=== PATIENT | female | born 1960 ===

== ENCOUNTER 2017-12-15 11:48 | Inpatient (IN) | payer MEDICAID ==
[~2017-12-15] VITALS: Ht 144.8 cm; Wt 52.4 kg
[2017-12-15 14:30] VITALS: BP 115/75
[2017-12-15] MEDS ORDERED: NITROGLYCERIN 0.4 MG SL TABS BTL 25'S SL PRN (14:45)
[2017-12-15] MEDS ORDERED: HYDROcodone/APAP 10 MG/325 MG (LORTAB) TAB PO PRN (14:45)
--- NOTE | 2017-12-15 15:39 | Physical Therapy Evaluation ---
PT Evaluation-General Medical Diagnosis Admission Date Dec 15, 2017 at 14:30 Medical Diagnosis: R femoral fracture, cerivcal fracture Onset Date: Dec 09, 2017 Therapy Diagnosis Therapy Diagnosis: Weakness, poor functional mobility and activity tolerance, pain Height/Weight Height (Feet): 4 Height (Inches): 9.00 Weight (Pounds): 111 Weight (Ounces): 8.0 Precautions Precautions/Isolations: Fall Prevention, Standard Precautions Cervical collar on at all times RLE: no hip flexion passed 90 degrees, no moving leg in IR or ER, no bringing leg across body Weight Bear Status Right Lower Extremity: Right Partial Weight Bearing (25% WB) Left Lower Extremity: Left Weight Bearing/Tolerated Referral Physician: Jag Kong MD Reason for Referral: Evaluation/Treatment Medical History Pertinent Medical History: COPD Additional Medical History Depression, malignant neoplasm of lung Surgery: appendectomy, cholecystectomy, hysterectomy tubal ligation Current History Pt presented to ER with R hip pain after falling. Pt had a R femoral fracture. Social History Home: Single Level Current Living Status: Children Entry Into Home: Ramp PT Steps Into Home: 0 PT Steps Inside Home: 0 Pt lives with daughter who is there all the time. Prior/Core FIM Prior Level of Function Functional [place] Measure 0=Not Assessed/NA 4=Minimal Assistance 1=Total Assistance 5=Supervision or Setup 2=Maximal Assistance 6=Modified [place] 3=Moderate Assistance 7=Complete [place] Bed Mobility: 3 Transfers (B,C,W/C) (FIM): 3 Gait: 6 Locomotion: 6 Pt required mod A from daughter for bed mobility and transfers. Pt utilized reverse walker with hand brakes in the home. PT Evaluation-Current Subjective Pt is laying in bed pre eval and c/o pain in LLE at 9/10. Pt agrees to PT. Pain Numeric Pain Scale: 9 Location: Left Location Body Site: Thigh Pt/Family Goals Return home with support Objective Patient Orientation: Person, Place, Situation Attachments: Oxygen (3 L) Cervical collar ROM/Strength ROM Lower Extremities NT Strenght Lower Extremities Grossly 4/5 RLE Neuromuscular (Tone, Coordination, Reflexes) NT Sensory Vision: Functional Hearing: Functional Sensation Right Lower Extremit: Intact Sensation Left Lower Extremity: Intact Transfers Functional [place] Measure 0=Not Assessed/NA 4=Minimal Assistance 1=Total Assistance 5=Supervision or Setup 2=Maximal Assistance 6=Modified [place] 3=Moderate Assistance 7=Complete IndependenceIRFPAI Quality Coding Scale 6 Independent with activity with or without an assistive device 5 Patient requires set up or clean up by helper. Patient completes activity by themselves 4 Supervision or touching assist (CGA). [place] provide cues , steadying assist 3 The helper provides less than half the effort to complete the activity 2 The helper provides more than half the effort to complete the activity 1 Dependent. The helper does all the effort to complete an activity 7 Patient refused to complete or attempt activity 9 The patient did not perform the activity before the current illness or injury 88 Not attempted due to Medical conditions or safety concerns Transfers (B, C, W/C) (FIM): 2 Scootin Rollin Roll Left to Right (QC): 3 Supine to/from Sit: 4 Sit to/from Stand: 2 bed t/f WC(FIM only if WC use): 2 Sit to Lying (QC): 3 Lying to Sitting/Side of Bed(Q: 3 Sit to Stand (QC): 2 Chair/Bwt-sk-Rkonb Xfer(QC): 2 Min A required for bed mobility with manual assistance of the RLE. Max A necessary for sit to stand and bed to chair transfer. Gait Does the Patient Walk?: Yes Mode of Locomotion: Walk Anticipated Mode of Locomotion: Walk Gait (FIM): 1 Distance (FIM): 1=up to 49 ft Walk 10 feet (QC): 88 Walk 50 ft with 2 Turns(QC): 88 Walk 150 ft (QC): 88 Walking 10ft/uneven surface-QC: 88 Distance: 3 feet Gait Level of Assist: 4 Gait Persons Needed: 1 Gait Assistive Device: Parallel Bars Wheelchair Training Does the Pt Use a Wheelchair?: Yes Wheelchair (FIM): 2 Wheelchair Distance (FIM): 5=346-82 ft Distance: 100 feet x2 Wheelchair Level of Assist: 4 Wheel 50 ft with 2 turns (QC): 4 Wheel 150 ft (QC): 88 Type of Wheelchair: Manual Min A needed for steering Stairs 1 Step (curb) (QC): 88 4 Steps (QC): 88 12 Steps (QC): 88 If not tested on admit;explain Pt was able to walk 3 feet. It seemed unsafe to promote stair training at this time. Balance Sitting Static: Normal Sitting Dynamic: Normal Standing Static: Fair Standing Dynamic: Fair Picking up an Object (QC): 88 Treatment Pt performed BLE exercises: ankle pumps 10 x1, hip flexion 10 x1 (up to 90 degrees on the RLE), LAQ 10 x1 Assessment/Needs Pt demonstrates weakness in BLE and poor activity tolerance. Due to pain in the LLE, pt was able to ambulate for 3 feet in the parallel bars. Pt will benefit from PT services to address these impairments. Rehab Potential: Fair PT Short Term Goals Short Term Goals Time Frame: Dec 22, 2017 Transfers (B,C,W/C) (FIM): 4 Gait (FIM): 1 Gait Distance Comment: 30 feet Gait Level of Assist: 4 Gait Assistive Device: FWW Wheelchair (FIM): 5 Wheelchair Distance: 150 feet Wheelchair Level of Assist: 5 PT Chcf Goals Chcf Goals PT Chcf Goals Time Frame: Jan 05, 2018 Transfers (B,C,W/C) (FIM): 5 Sit to Lying (QC): 4 Lying-Sitting on Side/Bed(QC): 4 Sit to Stand (QC): 4 Rollin Roll Left to Right (QC): 4 Chair/Rqc-jr-Fmbya Xfer(QC): 4 Car Transfer (QC): 4 Does the Patient Walk: Yes Gait (FIM): 5 Distance: 200 feet Walk 10 feet (QC): 4 Walk 10ft-Uneven Surface(QC): 4 Walk 50ft with 2 Turns (QC): 4 Walk 150 ft (QC): 4 Gait Level of Assist: 5 Gait Assistive Device: FWW Does the Pt use WC or Scooter?: Yes Wheelchair (FIM): 6 Distance: 300 feet Wheelchair Level of Assist: 6 Wheel 50 feet with 2 turns (QC: 6 Stairs (FIM): 2 # of Steps: 4 1 Step (curb) (QC): 4 4 Steps (QC): 4 Stairs Level Of Assist: 4 PT Plan Problem List Problem List: Activity Tolerance, Functional Strength, Safety, Balance, Gait, Transfer, Bed Mobility Treatment/Plan Treatment Plan: Continue Plan of Care Treatment Plan: Bed Mobility, Concurrent Therapy, Education, Functional Activity Aviva, Functional Strength, Group Therapy, Gait, Safety, Therapeutic Exercise, Transfers Treatment Duration: Jan 05, 2018 Frequency: At least 5 of 7 days/Wk (IRF) Estimated Hrs Per Day: 1.5 hours per day Patient and/or Family Agrees t: Yes Safety Risks/Education Patient Education: Gait Training, Transfer Techniques, Reviewed Precautions, Correct Positioning, W/C Management, Disease Process, Safety Issues Teaching Recipient: Patient Teaching Methods: Demonstration, Discussion Response to Teaching: Reinforcement Needed Discharge Recommendations Plan Pt will perform bed mobility and transfer training, gait and stair training, exercises to improve strength and activity tolerance as well balance training in order to be independent at home. Therapy D/C Recommendations: Home w/ Family Support Equpiment Recommendations-D/C: Front Wheeled Walker Time/GCodes Time In: 1500 Time Out: 1530 Total Billed Treatment Time: 30 Total Billed Treatment 1 visit 20 min EVH 10 min EX TARIQ NICHOLAS PT Dec 15, 2017 15:39
[2017-12-15] MEDS ORDERED: RT-ALBUTEROL SULF 2.5 MG/3 ML PRE-MIX VIAL INH PRN (15:45)
--- NOTE | 2017-12-15 15:50 | Occupational Therapy Eval ---
OT Evaluation-General/PLF Medical Diagnosis Admission Date Dec 15, 2017 at 14:30 Medical Diagnosis: Right hip fx/FABIAN Onset Date: Oct 18, 2017 Therapy Diagnosis Therapy Diagnosis: Weakness, Decreased ADL skills Height/Weight Height (Feet): 4 Height (Inches): 9.00 Weight (Pounds): 111 Weight (Ounces): 8.0 Weight Bear Status Weight Bearing Restriction: Touch Toe Bearing 25% weightbearing Right LE. Pt. wearing [place] J collar and has hip precautions. Referral Physician: Dr. Kong Referral Reason: Activity Tolerance, Self Care, Evaluation/Treatment, Strengthening/ROM Medical History Pertinent Medical History: COPD, HTN Additional Medical History Pneumonia Current History Pt. states that she went to in October. It was determined that she had two fx vertebrae, mass in her lungs and pneumonia. Pt. was given a [place] J collar and treated for pneumonia. Began radiation for the neck according to her. Pt. went home but began to have pain when ambulating. Went back to physician last where it was found that she had a lesion in her right inferior pubic ramus. Pt. underwent a Right FABIAN. Reviewed History: Yes Social History Home: Single Level Current Living Status: Children Entry Into Home: Stairs With Railing Steps Into Home: 3 Pt. states that she will be moving in with her daughter who has 8 children in the home. States that her daughter is supposed to be building a ramp while she is in rehab. ADL-Prior Level of Function ADL PLOF Comments Pt. was independent prior to her cancer diagnosis with ADLs. DME/Equipment: Bath Chair, Shower DME/Equipment Comments Pt. has a walker. 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 Drive Self: No OT Current Status Subjective Pt. is reporting pain 8/10 left hip. Nursing notified. Appearance Pt. in bed after arriving from [facility] via wheelchair van. Mental Status/Objective Patient Orientation: Person, Place Current Hand Dominance: Right Upper Extremity ROM Pt. demonstrates full ROM in bilateral UE. ADL-Treatment Functional [place] Measure 0=Not Assessed/NA 4=Minimal Assistance 1=Total Assistance 5=Supervision or Setup 2=Maximal Assistance 6=Modified [place] 3=Moderate Assistance 7=Complete IndependenceIRFPAI Quality Coding Scale 6 Independent with activity with or without an assistive device 5 Patient requires set up or clean up by helper. Patient completes activity by themselves 4 Supervision or touching assist (CGA). [place] provide cues , steadying assist 3 The helper provides less than half the effort to complete the activity 2 The helper provides more than half the effort to complete the activity 1 Dependent. The helper does all the effort to complete an activity 7 Patient refused to complete or attempt activity 9 The patient did not perform the activity before the current illness or injury 88 Not attempted due to Medical conditions or safety concerns Other Treatments OT evaluation initiated. Pt. is able to state most facts regarding history of cancer diagnosis. However, does have some difficulty placing certain events. Pt. states that she would like to get stronger. Pt. is able to answer all questions and participate in UE ROM testing. Did not test fully for muscle strength at this time, as pt. in pain and due to nature of fx. Education OT Patient Education: Correct positioning, Progress toward Goal/Update tx plan , Purpose of tx/functional activities, Reviewed precautions, Rehab process Teaching Recipient: Patient Teaching Methods: Discussion OT Short Term Goals Short Term Goals Time Frame: Dec 29, 2017 Eating(FIM): 5 Grooming(FIM): 5 Bathing(FIM): 4 Upper Body Dressing(FIM): 5 Lower Body Dressing(FIM): 4 Toileting(FIM): 4 Transfers (B,C,W/C) (FIM): 5 Toilet/Commode Transfer(FIM): 5 Shower Transfer(FIM): 4 Additional Short Term Goals: 1-Demonstrate ADL Tasks, 2-Verbalize Understanding , 3-ImproveStrength/Aviva 1=Demonstrate adherence to instructed precautions during ADL tasks. 2=Patient will verbalize/demonstrate understanding of assistive devices/ modifications for ADL. 3=Patient will improve strength/tolerance for activity to enable patient to perform ADL's. OT Assisted Goals Assisted Goals Time Frame: Jan 05, 2018 Eating (FIM): 6 Eating (QC): 6 Groomin Oral Hygiene (QC): 5 Bathing(FIM): 5 Shower/Bathe Self (QC): 5 Upper Body Dressing(FIM): 5 Upper Body Dressing (QC): 5 Lower Body Dressing(FIM): 5 Lower Body Dressing (QC): 5 On/Off Footwear (QC): 5 Toileting(FIM): 6 Toileting Hygiene (QC): 6 Transfers (B,C,W/C) (FIM): 6 Toilet/Commode Transfer(FIM): 6 Toilet/Commode Transfer (QC): 6 Shower Transfer(FIM): 5 Additional Goals: 1-Demonstrate ADL Tasks, 2-Verbalize Understanding, 3- ImproveStrength/Aviva 1=Demonstrate adherence to instructed precautions during ADL tasks. 2=Patient will verbalize/demonstrate understanding of assistive devices/ modifications for ADL. 3=Patient will improve strength/tolerance for activity to enable patient to perform ADL's. OT Education/Plan Problem List/Assessment Assessment: Decreased Activ Tolerance, Dependent Transfers, Impaired Funct Balance, Impaired I ADL's, Impaired Self-Care Skills Discharge Recommendations Plan/Recommendations: Continue POC Therapy D/C Recommendations: Home w/ Family Support, Occupational Therapy Home Care Equpiment Recommendations-D/C: Hip Kit Barriers to Progress Fatigue Target Placement Home with daughter support. Treatment Plan/Plan of Care Treatment,Training & Education: Yes Patient would benefit from OT for education, treatment and training to promote independence in ADL's, mobility, safety and/or upper extremity function for ADL' s. Plan of Care: ADL Retraining, Functional Mobility, UE Funct Exercise/Act Treatment Duration: Jan 05, 2018 Frequency: At least 5 of 7 days/Wk (IRF) Estimated Hrs Per Day: 1.5 hours per day Agreement: Yes Rehab Potential: Guarded Time/GCodes Start Time: 14:30 Stop Time: 15:00 Total Time Billed (hr/min): 30 Billed Treatment Time 1, DIONISIO LIMON OT Dec 15, 2017 15:50
--- NOTE | 2017-12-15 15:57 | ST Cognitive Linguistic Eval ---
Speech Evaluation-General Medical Diagnosis Pathological Right Hip Fx Therapy Diagnosis Therapy Diagnosis: Cognitive Linguistic Skills WNL Referral Referring Physician: Dr. Jag Kong Reason for Referral: Evaluation/Treatment Cognitive Evaluation Speech PLF-Current Status Prior Level of Function The patient denied prior challenges with speech, language, or cognition. Subjective The patient was seated upright in recliner upon entrance. The patient was agreeable to participation in the cognitive evaluation, however, stated she was in pain. The pain did not rate the pain or describe the pain when requested. The patient RN was notified who stated she would be administering pain medication to the patient. The patient was satisfied with this resolution. Language Eval: Auditory Comprehends Simple Yes/No Ques: Functional Indent/Objects Multiple [place]: Functional Ident/Pics in Multiple [place]: Functional Follows 1-Step Commands: Functional Follows Complex Directions: Functional Follows General Conversations: Functional Language Eval: Verbal Language Completes Spontaneous Greeting: Functional Produces Auto, Serial Info: Functional Imitates Simple Words/Phrases: Functional Word Finding: Functional Requests Basic Needs: Functional States Basic Personal Info: Functional Expresses Complex Ideas: Functional Cognitive Patient Orientation The patient was independently oriented to self, location, month, day of week, and year. Objective Cognitive Domain Attention: WNL Memory: WNL Problem Solving: Functional Objective Impression The patient demonstrated cognitive linguistic skills WNL and appropriate for completion of ADL's. Communication/Social Cognition Comprehension: 5 Expression: 6 Social Interaction: 6 Problem Solvin Memory: 6 Speech Patient Assess Expression of Ideas/Wants: Expression (4) Understanding [place] Content: Usually Understands (3) Brief Interview-Mental Status: Yes Repetition of Three Words: Three (3) Temporal Orientation: Year: Correct (3) Temporal Orientation: Month: Accurate within 5 days(2) Temporal Orientation: Day: Correct (1) Recall : Wear to say "Sock": Yes, no cue required (2) Recall : Color: Yes, no cue required (2) Recall : Bed: Yes, no cue required (2) Speech-Plan Treatment Plan Speech Therapy Treatment Plan: Discontinue ST Evaluation, only. Frequency: Modified Program (IRF) Estimated Hrs Per Day: Other Rehab Potential: Guarded Safety Risks/Education Teaching Recipient: Patient Teaching Methods: Discussion Response to Teaching: Verbalize Understanding Education Topics Provided: Results, Recommendations, Plan of Care Time Speech Therapy Time In: 15:35 Speech Therapy Time Out: 15:50 Total Billed Time: 15 Billed Treatment Time 1, DORISNDMINGO CHUA Dec 15, 2017 15:56
[2017-12-15] MEDS: oxyCODONE/APAP 5/325MG (PERCOCET 5) TABLET PO PRN ×2 (16:06→22:09)
--- NOTE | 2017-12-15 16:32 | Occupational Ther Daily Note ---
OT Current Status-Daily Note Subjective Pt seen in room, up in w/c, agreeable to OT but reported very tired. Pt needed to toilet. No pain rating Mental Status/Objective Functional [place] Measure 0=Not Assessed/NA 4=Minimal Assistance 1=Total Assistance 5=Supervision or Setup 2=Maximal Assistance 6=Modified [place] 3=Moderate Assistance 7=Complete [place] ADL-Treatment Pt needed mod assist sit to stand from w/c and from BSC. She has difficulty putting weight on R leg and also reported discomfort in L leg . Once she is up and holding on to walker, she needed just CGA for clothing management and hygiene. She did SPT to her L side from w/c to BSC and from BSC to EOB, with min /CGA, FWW. She also needed help getting both legs into bed and a little help scooting bottom over. pt was left up in bed, 4 rails up, O2 in place, all needs met. Functional [place] Measure 0=Not Assessed/NA 4=Minimal Assistance 1=Total Assistance 5=Supervision or Setup 2=Maximal Assistance 6=Modified [place] 3=Moderate Assistance 7=Complete IndependenceIRFPAI Quality Coding Scale 6 Independent with activity with or without an assistive device 5 Patient requires set up or clean up by helper. Patient completes activity by themselves 4 Supervision or touching assist (CGA). [place] provide cues , steadying assist 3 The helper provides less than half the effort to complete the activity 2 The helper provides more than half the effort to complete the activity 1 Dependent. The helper does all the effort to complete an activity 7 Patient refused to complete or attempt activity 9 The patient did not perform the activity before the current illness or injury 88 Not attempted due to Medical conditions or safety concerns Toileting (FIM): 1 (Help with clothing management and hygiene) Toileting Hygiene (QC): 1 Transfers (B, C, W/C) (FIM): 3 Toilet/Commode Transfer (FIM): 3 Toilet Transfer (QC): 3 Education OT Patient Education: Modified ADL techniques, Purpose of tx/functional activities, Transfer techniques Teaching Recipient: Patient Teaching Methods: Discussion Response to Teaching: Return Demonstration OT Short Term Goals Short Term Goals Time Frame: Dec 29, 2017 Eating(FIM): 5 Grooming(FIM): 5 Bathing(FIM): 4 Upper Body Dressing(FIM): 5 Lower Body Dressing(FIM): 4 Toileting(FIM): 4 Transfers (B,C,W/C) (FIM): 4 Toilet/Commode Transfer(FIM): 5 Shower Transfer(FIM): 4 Additional Short Term Goals: 1-Demonstrate ADL Tasks, 2-Verbalize Understanding , 3-ImproveStrength/Aviva 1=Demonstrate adherence to instructed precautions during ADL tasks. 2=Patient will verbalize/demonstrate understanding of assistive devices/ modifications for ADL. 3=Patient will improve strength/tolerance for activity to enable patient to perform ADL's. OT Firmware Architect Goals Senior Living Goals Time Frame: Jan 05, 2018 Eating (FIM): 6 Eating (QC): 6 Groomin Oral Hygiene (QC): 5 Bathing(FIM): 5 Shower/Bathe Self (QC): 5 Upper Body Dressing(FIM): 5 Upper Body Dressing (QC): 5 Lower Body Dressing(FIM): 5 Lower Body Dressing (QC): 5 On/Off Footwear (QC): 5 Toileting(FIM): 6 Toileting Hygiene (QC): 6 Transfers (B,C,W/C) (FIM): 6 Toilet/Commode Transfer(FIM): 6 Toilet/Commode Transfer (QC): 6 Shower Transfer(FIM): 5 Additional Goals: 1-Demonstrate ADL Tasks, 2-Verbalize Understanding, 3- ImproveStrength/Aviva 1=Demonstrate adherence to instructed precautions during ADL tasks. 2=Patient will verbalize/demonstrate understanding of assistive devices/ modifications for ADL. 3=Patient will improve strength/tolerance for activity to enable patient to perform ADL's. OT Education/Plan Discharge Recommendations Plan/Recommendations: Continue POC Treatment Plan/Plan of Care Patient would benefit from OT for education, treatment and training to promote independence in ADL's, mobility, safety and/or upper extremity function for ADL' s. Plan of Care: ADL Retraining, Functional Mobility, UE Funct Exercise/Act Treatment Duration: Jan 05, 2018 Frequency: At least 5 of 7 days/Wk (IRF) Estimated Hrs Per Day: 1.5 hours per day Agreement: Yes Rehab Potential: Fair Time/GCodes Start Time: 15:50 Stop Time: 16:15 Total Time Billed (hr/min): 25 Billed Treatment Time visit, 25 minutes ADL JAKE HARDIN OT Dec 15, 2017 16:31
[2017-12-15] MEDS ORDERED: INFLUENZA TRIvalent 2017-2018 0.5 ML/45 MCG SYR IM ONE (17:45)
[2017-12-15 19:18] VITALS: BP 103/72
--- NOTE | 2017-12-15 20:12 | PM&R Post Admission Assessment ---
Post Admission Physician Asses The preadmission screen agrees with the post admission assessment that the patient is a good candidate for inpatient rehabilitation. The patient will have a comprehensive program of inpatient rehabilitation with a goal of maximizing level of functional independence prior to discharge home with [facility]. The patient will have PT/OT ninety minutes per day, each discipline , five days a week for gait, strengthening, conditioning, balance, ADLs, any patient/family/caregiver training as necessary. Speech therapy to do cognitive assessment and treat as indicated. Rehabilitation nursing to assist with bowel, bladder, skin, wound care, medication administration, pain management. [employer] to assist with discharge planning, community reentry. SCD's for DVT prophylaxis. She appears to be well motivated to participate in three hours of therapy a day. She should be able to tolerate three hours of therapy a day from a medical and standpoint. She should benefit from the three hours of therapy a day. She has a reasonable discharge plan, reasonable discharge rehabilitation goals and a supportive family. She has various comorbidities that need to be closely monitored with medications and treatments adjusted on a daily basis as needed. These include: Metastatic lung Ca to bone COPD o2 dependentModerate Protein calorie malnutrition Ca pain Barriers to discharge for this patient who had been independent prior to this are for her to be modified independent to supervision for ADLs and mobility skills prior to discharge home with [facility], so as to lessen the burden of the caregivers. Risks for this patient include: 1. Fall 2. Fracture 3. DVT 4. Pulmonary embolism 5. Wound infection 6. Skin breakdown 7. Contractures 8. Poorly controlled pain 9. Urinary retention 10. UTI 11. Respiratory infection 12. Aspiration 13, recurrent Pneumonia 14. Resp failure Estimated Length of Stay: 18days Prognosis: Rehab prognosis appears good for goal of discharge home with [facility] modified independent to supervision for ADLs and mobility skills. JOSÉ ANTONIO GENAO MD Dec 15, 2017 20:12
[2017-12-15] MEDS: traZODone 100 MG (DESYREL) TAB PO SCH (20:51)
[2017-12-15] MEDS: meTOprolol TARTRATE 50 MG (LOPRESSOR) TAB PO SCH (20:51)
--- NOTE | 2017-12-15 21:31 | HISTORY AND PHYSICAL ---
DATE OF SERVICE: HISTORY OF PRESENT ILLNESS: The patient is a 57-year-old disabled female with metastatic lung cancer to the bone, who fell at home and sustained a pathologic fracture of the right hip. She was admitted to [facility] and the patient underwent a right hemiarthroplasty with orthopedics. The patient is a 25% weightbearing right lower extremity. She also sustained a C7 fracture, which is managed with a rigid collar. The patient is referred to inpatient rehabilitation unit. The patient also has chronic anemia. She was being followed by radiation oncologist for radiation therapy of bone pain. The patient is now referred to Inpatient Rehabilitation [facility] for ongoing care and therapies. The patient lives near [place], [place]. She was living alone, but plans on going to her daughter's home upon discharge. She was admitted to [facility] on 12/09/2017. Currently, she is min assist for transfers and walking three feet in the parallel bars. She is min assist for steering for wheelchair propulsion. She is right hand dominant. She is on O2 by nasal cannula slowly 3 liters per minute. She is set up for eating and grooming, mod assist for upper body dressing, max assist for lower body dressing, mod assist for toileting and bathing. She has a rigid cervical collar in place. She is utilizing Lortab for pain control. She is toe touch weightbearing right lower extremity. The patient had assistance from her family prior to this and did require some assistance for transfers and supervision for gait with a walker in her home. PAST MEDICAL HISTORY: COPD O2 dependent, pneumonia, nonsmall cell cancer of the right lung, protein-calorie malnutrition, closed fracture of the neck of the right femur as per above, anemia. PAST SURGICAL HISTORY: As per above. ALLERGIES: GABAPENTIN. FAMILY HISTORY: Noncontributory. SOCIAL HISTORY: Essentially as per above. She has a [place] Medicaid card. REVIEW OF SYSTEMS: Ten-point review of systems significant for shortness of breath and hip pain. MEDICATIONS: Amlodipine 10 mg p.o. daily, Ecotrin 81 mg p.o. daily, Imdur 30 mg p.o. daily, Celexa 20 mg p.o. every bedtime, Lopressor 50 mg p.o. b.i.d., trazodone 100 mg p.o. every bedtime, Benadryl 25 mg p.o. every bedtime p.r.n. insomnia, Proventil 2.5 mg q.6 hours p.r.n. shortness of breath, Flexeril 10 mg p.o. t.i.d. p.r.n. muscle spasms, nitroglycerin 0.4 mg sublingual p.r.n. chest pain, tramadol 50 mg p.o. q.8 hours p.r.n. mild pain, oxycodone/APAP 5/325 one tablet p.o. q.6 hours p.r.n. moderate pain. PHYSICAL EXAMINATION: GENERAL: Significant for female appearing her stated age, lying in bed with a rigid cervical collar on. Requesting Benadryl to assist for sleep. VITAL SIGNS: Pulse is 99, respirations 20 and she is afebrile. Blood pressure 115/75, O2 sat 96% on 3 liters of O2 by nasal cannula. HEENT: Vision, speech, hearing is functional. No oral lesion is noted. NECK: Rigid cervical collar. HEART: Regular rhythm. CHEST: Clear anteriorly. ABDOMEN: Soft, nontender, bowel sounds present. EXTREMITIES: She has tenderness over the right hip. No calf tenderness. MUSCULOSKELETAL: She has functional strength and active range of motion both upper extremities, somewhat limited proximally due to her rigid cervical collar. She has a functional active range of motion both lower extremities. NEUROLOGIC: Strength upper limbs as per above. Strength in the lower limbs 4/5. Cognition is grossly intact. Seen by speech therapy already. Sensation is grossly intact to touch. IMPRESSION: 1. Ambulatory dysfunction secondary to fall with pathologic fracture of proximal left femur, status post left hemiarthroplasty. Orthopedics Maryana Tamayo, toe touch weightbearing right lower extremity. 2. Chronic obstructive pulmonary disease, O2 dependent. 3. History of pneumonia. 4. Nonsmall cell cancer of the right lung with mets to bone udergoing RT for pain relief. 5. Protein-calorie malnutrition, moderate. 6. Chronic anemia. 7. C7 fracture, cervical spine, status post fall, managed with a rigid cervical collar. 8. Insomnia -patient requests Benadryl -low dose so ordered. PLAN: The patient will have a comprehensive program of inpatient rehabilitation with goal of maximize level of functional independence prior to discharge home with her daughter with home health care. If insurance will provide, the patient will have PT, OT 90 minutes per day each discipline, 5 days a week for gait, strengthening, conditioning, balance, ADLs, any patient and family caregiver training necessary, any adaptive equipment and training necessary, will most likely need to focus on wheelchair level of function due to her touch weightbearing status right lower extremity and due to limited endurance to COPD with O2 dependence. Speech therapy to do cognitive assessment and treat as indicated. They have seen her and found her to be functional and signed off. Rehabilitation nursing to assist with bowel, bladder, skin, wound care, medication administration, pain management. director of employer services for discharge planning, community reentry. Follow up with her orthopedist in [place] upon discharge from rehabilitation. We will ask Dr. Gatica to follow this patient along for any medical concerns as needed. Routine admission labs. Respiratory therapy to assist with O2 administration, respiratory therapy and respiratory treatment administration and monitoring O2 sats may need to repeat a chest x-ray. ESTIMATED LENGTH OF STAY: 18 days. PROGNOSIS: Rehabilitation prognosis appears good at least at the short-term for goal of discharging home with daughter at maximal level of functional independence taking into consideration of her comorbidities, her metastatic lung cancer to the bone and her C7 fracture managed with a rigid cervical collar and her right femur fracture managed with a hemiarthroplasty and Toe touch weightbearing right lower extremity. Follow up with her radiation oncologist upon discharge from rehabilitation. DIET: Regular. CODE STATUS: The patient has declined hospice or DNR status at referring facility. The patient is a full code. Job ID: [id number] DocumentID: [id number] Dictated Date: 12/15/2017 20:26:52 [employer] Vice President Date: 12/15/2017 21:30:23 Dictated By: JOSÉ ANTONIO GENAO MD [facility]
[2017-12-15] MEDS: diphenhydrAMINE 25 MG TAB (BENADRYL) PO PRN (22:09)
[2017-12-16] MEDS: oxyCODONE/APAP 5/325MG (PERCOCET 5) TABLET PO PRN ×3 (05:29→20:42)
[2017-12-16 06:12] LABS: BASOPHILS % (AUTO) 0 % (0-10); EOSINOPHILS % (AUTO) 1 % (0-10); HEMATOCRIT 27 % (35-52); LYMPHOCYTES # (AUTO) 0.3 X 10^3 (1.0-4.0); LYMPHOCYTES % (AUTO) 4 % (12-44); MEAN CORPUSCULAR HEMOGLOBIN 30 PG (25-34); MEAN CORPUSCULAR HGB CONC 33 G/DL (32-36); MEAN CORPUSCULAR VOLUME 90 FL (80-99); MONOCYTES # (AUTO) 0.7 X 10^3 (0.0-1.0); MONOCYTES % (AUTO) 8 % (0-12); NEUTROPHILS # (AUTO) 6.9 X 10^3 (1.8-7.8); NEUTROPHILS % (AUTO) 87 % (42-75); PLATELET COUNT 461 10^3/uL (130-400); RED BLOOD COUNT 3.04 10^6/uL (4.35-5.85); RED CELL DISTRIBUTION WIDTH 16.9 % (10.0-14.5); WHITE BLOOD COUNT 7.9 10^3/uL (4.3-11.0)
[2017-12-16 06:23] LABS: ANISOCYTOSIS SLIGHT; BAND NEUTROPHILS 1 %; BASOPHILS % (MANUAL) 0 %; EOSINOPHILS % (MANUAL) 1 %; LYMPHOCYTES % (MANUAL) 1 %; MICROCYTOSIS SLIGHT; MONOCYTES % (MANUAL) 7 %; NEUTROPHILS % (MANUAL) 90 %
[2017-12-16 06:24] LABS: POLYCHROMASIA SLIGHT
[2017-12-16 06:51] VITALS: BP 100/64
[2017-12-16 06:54] LABS: ALANINE AMINOTRANSFERASE 13 U/L (0-55); ALBUMIN 2.9 GM/DL (3.2-4.5); ALKALINE PHOSPHATASE 99 U/L (40-136); BILIRUBIN,TOTAL 0.5 MG/DL (0.1-1.0); BUN/CREATININE RATIO 17; CALCIUM 9.4 MG/DL (8.5-10.1); CARBON DIOXIDE 28 MMOL/L (21-32); CHLORIDE 94 MMOL/L (98-107); CREATININE SERUM 0.47 MG/DL (0.60-1.30); GFR ESTIMATED > 60; GLUCOSE 98 MG/DL (70-105); POTASSIUM 2.9 MMOL/L (3.6-5.0); SODIUM 137 MMOL/L (135-145); TOTAL PROTEIN 6.8 GM/DL (6.4-8.2)
--- NOTE | 2017-12-16 08:51 | Consultation ---
History of Present Illness History of Present Illness Patient Consulted On(bonita/time) 12/16/17 08:47 Time Seen by Provider: 08:50 History of Present Illness Patient came from [facility]. Patient has metastatic lung cancer. Patient has fracture of the right hip and C7. Patient stopped smoking for 5 years. Surgeries hysterectomy, gallbladder appendectomy and hip. Family history asthma diabetes heart disease Allergies and Home Medications Allergies Coded Allergies: gabapentin (Verified Allergy, Unknown, 12/15/17) Past Gurddku-Elottn-Wlqpby Hx Patient Social History Alcohol Use: Past History Recreational Drug Use: No Smoking Status: Former Smoker Type Used: Cigarettes Recent Foreign Travel: No Contact w/Someone Who Travel: No Recent Infectious Disease Expo: No Recent Hopitalizations: Yes Seasonal Allergies Seasonal Allergies: No Respiratory Respiratory Disorders: COPD, Emphysema Currently Using CPAP: No Currently Using BIPAP: No Cardiovascular History of Cardiac Disorders: No Neurological History of Neurological Disord: No Genitourinary History of Genitourinary Disor: No Gastrointestinal Gastrointestinal Disorders: Gall Bladder Disease Musculoskeletal History of Musculoskeletal Dis: No Endocrine History of Endocrine Disorders: No HEENT History of HEENT Disorders: No Cancer Cancer: Liver, Bone, Lung Did You Recieve Any Treatments: Yes Type of Tx Receive: Radiation Cancer Comment: CURRENTLY RECEIVING RADIATION [place] M-F Psychosocial Behavioral Health Disorders: Depression Integumentary History of Skin or Integumenta: No Blood Transfusions History of Blood Disorders: No Family Medical History Family Medial History: Colon cancer 19 MOTHER Completed stroke 19 FATHER Diabetes mellitus G8 SISTER Respiratory disorder 19 FATHER Review of Systems-General Constitutional: weakness EENTM: other (Collar for C7 fracture) Respiratory: no symptoms reported, short of breath Cardiovascular: no symptoms reported Gastrointestinal: no symptoms reported Genitourinary: no symptoms reported Physical Exam-General Problems Physical Exam Vital Signs Vital Signs - First Documented 12/15/17 14:30 Temp 96.3 Pulse 99 Resp 20 B/P (MAP) 115/75 (88) Pulse Ox 96 O2 Delivery Nasal Cannula O2 Flow Rate 3.00 Capillary Refill : Less Than 3 Seconds General Appearance: WD/WN, no apparent distress Eyes: Bilateral Eye Normal Inspection HEENT: normal ENT inspection Neck: other (Cervical collar) Respiratory: no respiratory distress, no accessory muscle use, decreased breath sounds Cardiovascular: no murmur Gastrointestinal: non tender, soft Assessment/Plan Assessment/Plan Admission Diagnosis/Plan Right hip fracture. C7 fracture. Metastatic lung cancer. Hypokalemia Clinical Quality Measures DVT/VTE Risk/Contraindication: Risk Factor Score Per Nursin RFS Level Per Nursing on Admit: 4+=Very High SE WILSON DO Dec 16, 2017 08:51
[2017-12-16] MEDS: amLODIPine 10 MG (NORVASC) TAB PO SCH (09:12)
[2017-12-16] MEDS: ASPIRIN E.C. 81 MG (ECOTRIN) TAB PO SCH (09:12)
[2017-12-16] MEDS: ISOSORBIDE MONONITRATE 30 MG (IMDUR) TAB PO SCH (09:12)
[2017-12-16] MEDS: meTOprolol TARTRATE 50 MG (LOPRESSOR) TAB PO SCH ×2 (09:12→20:42)
[2017-12-16] MEDS ORDERED: ASPI-983 PO (09:26)
[2017-12-16] MEDS ORDERED: TRAZ100T92 PO (09:26)
[2017-12-16] MEDS ORDERED: TIOT4MIS2 IH (09:26)
[2017-12-16] MEDS ORDERED: ISOS30TA3 PO (09:26)
[2017-12-16] MEDS ORDERED: CYCL10TA9 PO (09:26)
[2017-12-16] MEDS ORDERED: TRAM50TA2 PO (09:26)
[2017-12-16] MEDS ORDERED: AMLO10TA2 PO (09:26)
[2017-12-16] MEDS ORDERED: RT-ALBUINH IH (09:26)
[2017-12-16] MEDS ORDERED: CITA20TA7 PO (09:26)
[2017-12-16] MEDS ORDERED: NITR0.4T39 SL (09:26)
[2017-12-16] MEDS ORDERED: METO50TA15 PO (09:26)
[2017-12-16] MEDS ORDERED: HYDR-3820 PO (09:26)
[2017-12-16] MEDS: KCL 10 MEQ TAB (MICRO K) PO SCH ×2 (09:38→20:45)
--- NOTE | 2017-12-16 09:54 | PM & R (SOAP) Progress Note ---
Subjective Time Seen by Provider: 08:05 Subjective/Events-last exam Patient was seen in her room this AM Patient adjusting well to unit Appreciate Dr San note and orders Labs noted K low supplement ordered.She is mod assist for transfers Review of Systems Pulmonary: Dyspnea Musculoskeletal: leg pain Objective Exam Last Set of Vital Signs Vital Signs Date Time Temp Pulse Resp B/P (MAP) Pulse Ox O2 Delivery O2 Flow Rate FiO2 12/16/17 09:22 91 Nasal Cannula 3.00 12/16/17 06:51 97.7 99 16 100/64 (76) Capillary Refill : Less Than 3 Seconds I&O Intake and Output 12/15/17 23:59 Intake Total 400 ml Balance 400 ml Intake Oral 400 ml # Voids 1 Daily Weight Change Yes, 24-33 lbs General: Alert, Oriented X3, Cooperative, No Acute Distress HEENT: Atraumatic, PERRLA, EOMI, Mucous Memb Moist/[place] Neck: Supple, No JVD, Other (rigid cervical collar in place) Lungs: Clear to Auscultation Heart: Regular Rate Abdomen: Normal Bowel Sounds, Soft, No Tenderness Extremities: Other (trace edema rt ankle) Neuro: Other (Functional strength with some guarding rt hip due to recent fracture and repair) Results Lab Laboratory Tests 12/16/17 05:35: White Blood Count 7.9, Red Blood Count 3.04L, Hemoglobin 9.0L, Hematocrit 27L, Mean Corpuscular Volume 90, Mean Corpuscular Hemoglobin 30, Mean Corpuscular Hemoglobin Concent 33, Red Cell Distribution Width 16.9H, Platelet Count 461H, Mean Platelet Volume 9.0, Neutrophils (%) (Auto) 87H, Lymphocytes (%) (Auto) 4L , Monocytes (%) (Auto) 8, Eosinophils (%) (Auto) 1, Basophils (%) (Auto) 0, Neutrophils # (Auto) 6.9, Lymphocytes # (Auto) 0.3L, Monocytes # (Auto) 0.7, Eosinophils # (Auto) 0.0, Basophils # (Auto) 0.0, Neutrophils % (Manual) 90, Lymphocytes % (Manual) 1, Monocytes % (Manual) 7, Eosinophils % (Manual) 1, Basophils % (Manual) 0, Band Neutrophils 1, Polychromasia SLIGHT, Anisocytosis SLIGHT, Microcytosis SLIGHT, Sodium Level 137, Potassium Level 2.9L, Chloride Level 94L, Carbon Dioxide Level 28, Anion Gap 15H, Blood Urea Nitrogen 8, Creatinine 0.47L, Estimat Glomerular Filtration Rate > 60, BUN/Creatinine Ratio 17, Glucose Level 98, Calcium Level 9.4, Total Bilirubin 0.5, Aspartate Amino Transf (AST/SGOT) 11, Alanine Aminotransferase (ALT/SGPT) 13, Alkaline Phosphatase 99, Total Protein 6.8, Albumin 2.9L Assessment/Plan Assessment Pathologic fracture rt prox femur s/p fall with hemiarthroplasty OSH toe touch WB RLE C 7 Fracture managed with rigid Collar Lung Ca with mets to bone undergoing palliative RT on an Outpatient basis in [facility] COPD o2 dependent Hypokalemia replace Non small cell Lung Ca Protein calorie Malnutrition moderate Chronic anemia HX of Pneumonia Plan Continue PT/OT Team Conference later today-See report for full functional update and POC and ELOS ' The patienr has a daughter who assists her at home in [place] near [facility] labs JOSÉ ANTONIO GENAO MD Dec 16, 2017 9:54 am
--- NOTE | 2017-12-16 12:03 | Physical Therapy Daily Note ---
PT Daily Note-Current Subjective Pt is laying in bed pre tx and agrees to PT with c/o pain in L hip. Pain Comment: No numerical rating given Appearance Pt is sitting in H post tx with nurse call, phone, and tray within reach. Mental Status Patient Orientation: Normal For Age Attachments: Oxygen (3 L) Cervical collar Transfers Functional [place] Measure 0=Not Assessed/NA 4=Minimal Assistance 1=Total Assistance 5=Supervision or Setup 2=Maximal Assistance 6=Modified [place] 3=Moderate Assistance 7=Complete IndependenceIRFPAI Quality Coding Scale 6 Independent with activity with or without an assistive device 5 Patient requires set up or clean up by helper. Patient completes activity by themselves 4 Supervision or touching assist (CGA). [place] provide cues , steadying assist 3 The helper provides less than half the effort to complete the activity 2 The helper provides more than half the effort to complete the activity 1 Dependent. The helper does all the effort to complete an activity 7 Patient refused to complete or attempt activity 9 The patient did not perform the activity before the current illness or injury 88 Not attempted due to Medical conditions or safety concerns Transfers (B, C, W/C) (FIM): 3 Scootin Rollin Supine to/from Sit: 3 Sit to/from Stand: 3 Bed to/from Chair: 3 Min A needed for scooting and rolling and mod A required for supine to sit and transfers. Weight Bearing Right Lower Extremity: Right Partial Weight Bearing Left Lower Extremity: Left Weight Bearing/Tolerated Gait Training Does the Patient Walk?: Yes Gait (FIM): 1 Distance: 8 feet x2 Gait Level of Assist: 4 Gait Persons Needed: 1 Gait Assistive Device: Parallel Bars Pt prefers to hop on LLE rather than TTWB on the RLE due to pain. Wheelchair Training Does the Pt Use a Wheelchair?: Yes Wheelchair (FIM): 2 Distance: 120 feet x2 Wheelchair Level of Assist: 4 Type of Wheelchair: Manual Min A needed for steering Exercises Supine Ex: Ankle pumps (20 x1 BLE), Glut sets (10 x1), Heel Slides (10 x1 BLE) , Short Arc Quads (10 x1 BLE), Hip abd/add (10 x1 BLE) Treatments Pt performed bed mobility, H mobility, LE exercise, and gait training. Assessment Current Status: Good Progress Pt needed to be clothed before getting out of bed. Pt performed rolling exercises to assist. Pt tends to rub the LLE due to pain and c/o pain in the LLE during walking in parallel bars. Pt improved waking distance from 3 feet yesterday to 8 feet x2 in the parallel bars today. PT Short Term Goals Short Term Goals Time Frame: Dec 22, 2017 Transfers (B,C,W/C) (FIM): 4 Gait (FIM): 1 Gait Distance Comment: 30 feet Gait Level of Assist: 4 Gait Assistive Device: FWW Wheelchair (FIM): 4 Wheelchair Distance: 150 feet Wheelchair Level of Assist: 5 PT Abstract Searcher Goals Fpc Goals PT Abstract Searcher Goals Time Frame: Jan 05, 2018 Transfers (B,C,W/C) (FIM): 6 Sit to Lying (QC): 6 Lying-Sitting on Side/Bed(QC): 6 Sit to Stand (QC): 6 Rollin Roll Left to Right (QC): 6 Chair/Gzr-ra-Caxls Xfer(QC): 6 Car Transfer (QC): 6 Does the Patient Walk: Yes (2) Gait (FIM): 6 Distance: 200 feet Walk 10 feet (QC): 6 Walk 10ft-Uneven Surface(QC): 6 Walk 50ft with 2 Turns (QC): 6 Walk 150 ft (QC): 6 Gait Level of Assist: 6 Gait Assistive Device: FWW Does the Pt use WC or Scooter?: Yes Wheelchair (FIM): 6 Distance: 300 feet Wheelchair Level of Assist: 6 Wheel 50 feet with 2 turns (QC: 6 Stairs (FIM): 2 # of Steps: 4 1 Step (curb) (QC): 6 4 Steps (QC): 6 12 Steps (QC): 9 Stairs Level Of Assist: 6 Picking up an Object (QC): 6 PT Plan Problem List Problem List: Activity Tolerance, Functional Strength, Safety, Balance, Gait, Transfer, Bed Mobility, ROM Treatment/Plan Treatment Plan: Continue Plan of Care Treatment Plan: Bed Mobility, Education, Functional Activity Aviva, Functional Strength, Group Therapy, Gait, Safety, Therapeutic Exercise, Transfers Treatment Duration: Jan 05, 2018 Frequency: At least 5 of 7 days/Wk (IRF) Estimated Hrs Per Day: 1.5 hours per day Patient and/or Family Agrees t: Yes Safety Risks/Education Patient Education: Gait Training, Transfer Techniques, Reviewed Precautions, Correct Positioning, W/C Management, Safety Issues Teaching Recipient: Patient Teaching Methods: Demonstration, Discussion Response to Teaching: Reinforcement Needed Discharge Recommendations Therapy D/C Recommendations: Home w/ Family Support Equpiment Recommendations-D/C: Front Wheeled Walker Time/GCodes Time In: 900 Time Out: 1000 Total Billed Treatment Time: 60 Total Billed Treatment 1 visit 15 min WCH 15 min GT 15 min EX 15 min FA LV NEVILLE PT Dec 16, 2017 12:03
--- NOTE | 2017-12-16 14:23 | Occupational Ther Daily Note ---
OT Current Status-Daily Note Subjective Pt. in bed. Reported 10/10 in pain in lower back when sitting up. Nursing notified. Please see following note. Appearance Pt. in bed. Agrees to treatment. Mental Status/Objective Patient Orientation: Person, Place Functional [place] Measure 0=Not Assessed/NA 4=Minimal Assistance 1=Total Assistance 5=Supervision or Setup 2=Maximal Assistance 6=Modified [place] 3=Moderate Assistance 7=Complete [place] ADL-Treatment Functional [place] Measure 0=Not Assessed/NA 4=Minimal Assistance 1=Total Assistance 5=Supervision or Setup 2=Maximal Assistance 6=Modified [place] 3=Moderate Assistance 7=Complete IndependenceIRFPAI Quality Coding Scale 6 Independent with activity with or without an assistive device 5 Patient requires set up or clean up by helper. Patient completes activity by themselves 4 Supervision or touching assist (CGA). [place] provide cues , steadying assist 3 The helper provides less than half the effort to complete the activity 2 The helper provides more than half the effort to complete the activity 1 Dependent. The helper does all the effort to complete an activity 7 Patient refused to complete or attempt activity 9 The patient did not perform the activity before the current illness or injury 88 Not attempted due to Medical conditions or safety concerns Bathing (FIM): 3 (Pt. able to wash UE, chest, lisa areas in supine position. OT washed bilateral lower extremities and feet.) Shower/Bathe Self (QC): 3 Upper Body (FIM): 4 (Min assist to don shirt in supine position. SBA to don nightgown in supine position.) Upper Body Dressing (QC): 4 Lower Body Dressing (FIM): 1 (Dependent in supine position to doff and don slipper socks.) Lower Body Dressing (QC): 1 On/Off Footwear (QC): 1 Pt. declined showering but agreed to spongebathe on side of bed. Transferred supine-sit with mod assist. Pt. began to report significant pain in lower back. Requested to lay back down. Pain subsided in supine position and pt. requested to bathe in that position. OT checked oxygen. Pt. on 3L and 95%. Doffed oxygen and took sats throughout ADL treatment. After ADL tasks, pt. agreed to bilateral UE strengthening at bed level, as she declined out of bed activity. Completed 3 exercises x 15 reps each x 3 sets in all planes to increase overall UE strength. Pt. took multiple rest breaks in between exercises. OT took oxygen again and pt. had dropped signicantly to 76%. OT re- applied oxygen and pt. gradually came back to 95% after rest break. OT brought in AE to show and educate pt on. Pt. states that she has seen this before but does not feel like practicing right now. All needs met in room. Education OT Patient Education: Correct positioning, Exercise program, Modified ADL techniques, Progress toward Goal/Update tx plan, Purpose of tx/functional activities, Reviewed precautions, Rehab process, Transfer techniques, Use of adapted equipment Teaching Recipient: Patient Teaching Methods: Demonstration, Discussion Response to Teaching: Verbalize Understanding, Return Demonstration OT Short Term Goals Short Term Goals Time Frame: Dec 29, 2017 Eating(FIM): 5 Grooming(FIM): 5 Bathing(FIM): 4 Upper Body Dressing(FIM): 5 Lower Body Dressing(FIM): 4 Toileting(FIM): 4 Transfers (B,C,W/C) (FIM): 4 Toilet/Commode Transfer(FIM): 5 Shower Transfer(FIM): 4 Additional Short Term Goals: 1-Demonstrate ADL Tasks, 2-Verbalize Understanding , 3-ImproveStrength/Aviva 1=Demonstrate adherence to instructed precautions during ADL tasks. 2=Patient will verbalize/demonstrate understanding of assistive devices/ modifications for ADL. 3=Patient will improve strength/tolerance for activity to enable patient to perform ADL's. OT Production Control Analyst Goals Jail Goals Time Frame: Jan 05, 2018 Eating (FIM): 6 Eating (QC): 6 Groomin Oral Hygiene (QC): 5 Bathing(FIM): 5 Shower/Bathe Self (QC): 5 Upper Body Dressing(FIM): 5 Upper Body Dressing (QC): 5 Lower Body Dressing(FIM): 5 Lower Body Dressing (QC): 5 On/Off Footwear (QC): 5 Toileting(FIM): 6 Toileting Hygiene (QC): 6 Transfers (B,C,W/C) (FIM): 6 Toilet/Commode Transfer(FIM): 6 Toilet/Commode Transfer (QC): 6 Shower Transfer(FIM): 5 Additional Goals: 1-Demonstrate ADL Tasks, 2-Verbalize Understanding, 3- ImproveStrength/Aviva 1=Demonstrate adherence to instructed precautions during ADL tasks. 2=Patient will verbalize/demonstrate understanding of assistive devices/ modifications for ADL. 3=Patient will improve strength/tolerance for activity to enable patient to perform ADL's. OT Education/Plan Problem List/Assessment Assessment: Decreased Activ Tolerance, Decreased UE Strength, Dependent Transfers, Impaired Bed Mobility, Impaired Funct Balance, Impaired I ADL's, Impaired Self-Care Skills, Restricted Funct UE ROM Discharge Recommendations Plan/Recommendations: Continue POC Therapy D/C Recommendations: 24 hr Supervision, Home w/ Family Support, Occupational Therapy Home Care, Scheduled Assistance Comment Equipment needs to be determined. Treatment Plan/Plan of Care Treatment,Training & Education: Yes Patient would benefit from OT for education, treatment and training to promote independence in ADL's, mobility, safety and/or upper extremity function for ADL' s. Plan of Care: ADL Retraining, Functional Mobility, UE Funct Exercise/Act Treatment Duration: Jan 05, 2018 Frequency: At least 5 of 7 days/Wk (IRF) Estimated Hrs Per Day: 1.5 hours per day Agreement: Yes Rehab Potential: Fair Time/GCodes Start Time: 11:00 Stop Time: 12:00 Total Time Billed (hr/min): 60 Billed Treatment Time 1, ADL x 45minutes, Ex x 15minutes DIONISIO SLAUGHTER OT Dec 16, 2017 14:23
--- NOTE | 2017-12-16 15:05 | Therapy Group Daily Note ---
Therapy Daily Group Note Patient Education Topic Energy Cons Exercises LE Seated Exercise, UE Exercise Other/Notes Pt transported to therapy gym via recliner for OT/PT group. Group consisted of introductions (name, place living, how many siblings), socialization, UE/LE seated exercises, breathing exercises, prevention education (blood clots, pneumonia, skin break down, work simplification and energy conservation education. Pt was able to appropriately introduce self and actively listening to peers. Pt socialized and contributed to group conversations. Pt completed UE/LE seated exercises, LE increased difficulty for AROM. Pt verbalized understanding of educational topics by giving strategies and asking questions pertaining to topics. Pt was able to complete trivia activity that promoted critical thinking and problem solving. After therapy, pt laying back in recliner with call light/phone in reach. All needs met in room. Start Time: 13:00 Stop Time: 14:25 Total Billed Treatment Time: 85 Total Billed Treatment 1-GRP LV PERALES Dec 16, 2017 15:04
--- NOTE | 2017-12-16 15:30 | Occupational Ther Daily Note ---
OT Current Status-Daily Note Subjective Pt seen in room, up in recliner, agreeable to OT. Pt reported L leg pain but did not rate or describe it. Appearance Alert, cooperative, fatigued Mental Status/Objective Functional [place] Measure 0=Not Assessed/NA 4=Minimal Assistance 1=Total Assistance 5=Supervision or Setup 2=Maximal Assistance 6=Modified [place] 3=Moderate Assistance 7=Complete [place] ADL-Treatment Functional [place] Measure 0=Not Assessed/NA 4=Minimal Assistance 1=Total Assistance 5=Supervision or Setup 2=Maximal Assistance 6=Modified [place] 3=Moderate Assistance 7=Complete IndependenceIRFPAI Quality Coding Scale 6 Independent with activity with or without an assistive device 5 Patient requires set up or clean up by helper. Patient completes activity by themselves 4 Supervision or touching assist (CGA). [place] provide cues , steadying assist 3 The helper provides less than half the effort to complete the activity 2 The helper provides more than half the effort to complete the activity 1 Dependent. The helper does all the effort to complete an activity 7 Patient refused to complete or attempt activity 9 The patient did not perform the activity before the current illness or injury 88 Not attempted due to Medical conditions or safety concerns Other Treatment Pt did 12 reps bilat UE exercises (increase 2 reps each), 5 different exercises. She recalled several from this morning but also learned a couple more. Skilled cues to do them correctly. After 1st set, she did 12 reps of two of the exercises of her choice. To strengthen arms to help with transfers and standing during ADLs. Pt left up in recliner, all needs met, O2 in place at 3L/ min. Education OT Patient Education: Exercise program, Purpose of tx/functional activities Teaching Recipient: Patient Teaching Methods: Demonstration, Discussion Response to Teaching: Return Demonstration OT Short Term Goals Short Term Goals Time Frame: Dec 29, 2017 Eating(FIM): 5 Grooming(FIM): 5 Bathing(FIM): 4 Upper Body Dressing(FIM): 5 Lower Body Dressing(FIM): 4 Toileting(FIM): 4 Transfers (B,C,W/C) (FIM): 4 Toilet/Commode Transfer(FIM): 5 Shower Transfer(FIM): 4 Additional Short Term Goals: 1-Demonstrate ADL Tasks, 2-Verbalize Understanding , 3-ImproveStrength/Aviva 1=Demonstrate adherence to instructed precautions during ADL tasks. 2=Patient will verbalize/demonstrate understanding of assistive devices/ modifications for ADL. 3=Patient will improve strength/tolerance for activity to enable patient to perform ADL's. OT Senior Living Goals Lithographic Photographer Apprentice Goals Time Frame: Jan 05, 2018 Eating (FIM): 6 Eating (QC): 6 Groomin Oral Hygiene (QC): 5 Bathing(FIM): 5 Shower/Bathe Self (QC): 5 Upper Body Dressing(FIM): 5 Upper Body Dressing (QC): 5 Lower Body Dressing(FIM): 5 Lower Body Dressing (QC): 5 On/Off Footwear (QC): 5 Toileting(FIM): 6 Toileting Hygiene (QC): 6 Transfers (B,C,W/C) (FIM): 6 Toilet/Commode Transfer(FIM): 6 Toilet/Commode Transfer (QC): 6 Shower Transfer(FIM): 5 Additional Goals: 1-Demonstrate ADL Tasks, 2-Verbalize Understanding, 3- ImproveStrength/Aviva 1=Demonstrate adherence to instructed precautions during ADL tasks. 2=Patient will verbalize/demonstrate understanding of assistive devices/ modifications for ADL. 3=Patient will improve strength/tolerance for activity to enable patient to perform ADL's. OT Education/Plan Discharge Recommendations Plan/Recommendations: Continue POC Treatment Plan/Plan of Care Patient would benefit from OT for education, treatment and training to promote independence in ADL's, mobility, safety and/or upper extremity function for ADL' s. Plan of Care: ADL Retraining, Functional Mobility, UE Funct Exercise/Act Treatment Duration: Jan 05, 2018 Frequency: At least 5 of 7 days/Wk (IRF) Estimated Hrs Per Day: 1.5 hours per day Agreement: Yes Rehab Potential: Fair Time/GCodes Start Time: 14:55 Stop Time: 15:16 Total Time Billed (hr/min): 21 Billed Treatment Time visit, 21 minutes exercise JAKE HARDIN OT Dec 16, 2017 15:30
[2017-12-16 18:58] VITALS: BP 96/59
[2017-12-16] MEDS: traZODone 100 MG (DESYREL) TAB PO SCH (20:43)
[2017-12-16] MEDS ORDERED: KCL 10 MEQ TAB (MICRO K) PO ONE (21:00)
[2017-12-16] MEDS ORDERED: KCL 10 MEQ TAB (MICRO K) PO SCH (21:00)
[2017-12-16] MEDS: diphenhydrAMINE 25 MG TAB (BENADRYL) PO PRN (22:26)
[2017-12-17 04:45] VITALS: BP 98/69
[2017-12-17 07:12] LABS: BUN/CREATININE RATIO 18; CALCIUM 9.4 MG/DL (8.5-10.1); CARBON DIOXIDE 25 MMOL/L (21-32); CHLORIDE 96 MMOL/L (98-107); CREATININE SERUM 0.45 MG/DL (0.60-1.30); GFR ESTIMATED > 60; GLUCOSE 83 MG/DL (70-105); POTASSIUM 3.6 MMOL/L (3.6-5.0); SODIUM 136 MMOL/L (135-145)
[2017-12-17] MEDS: amLODIPine 10 MG (NORVASC) TAB PO SCH (08:30)
[2017-12-17] MEDS: oxyCODONE/APAP 5/325MG (PERCOCET 5) TABLET PO PRN ×3 (08:31→20:28)
[2017-12-17] MEDS: ISOSORBIDE MONONITRATE 30 MG (IMDUR) TAB PO SCH (08:31)
[2017-12-17] MEDS: meTOprolol TARTRATE 50 MG (LOPRESSOR) TAB PO SCH ×2 (08:31→20:28)
[2017-12-17] MEDS: ASPIRIN E.C. 81 MG (ECOTRIN) TAB PO SCH (08:31)
--- NOTE | 2017-12-17 08:55 | Progress Note (SOAP) ---
Subjective Time Seen by Provider: 08:54 Subjective/Events-last exam Right hip fracture. C7 fracture. Patient wondering about her cervical collar. Patient complaining of pain in the left leg. Objective Exam Vital Signs Date Time Temp Pulse Resp B/P (MAP) Pulse Ox O2 Delivery O2 Flow Rate FiO2 12/17/17 07:56 Nasal Cannula 3.00 12/17/17 04:45 96.9 103 18 98/69 (79) 94 Nasal Cannula 3.00 12/16/17 20:40 Nasal Cannula 3.00 12/16/17 20:33 Nasal Cannula 3.00 12/16/17 18:58 97.8 114 14 96/59 (71) 94 Nasal Cannula 3.00 12/16/17 09:22 91 Nasal Cannula 3.00 12/16/17 09:00 Nasal Cannula 3.00 I & O 12/17/17 07:00 Intake Total 1100 ml Balance 1100 ml Capillary Refill : Less Than 3 Seconds General Appearance: No Apparent Distress, Thin Results Lab Laboratory Tests 12/17/17 05:34: Sodium Level 136, Potassium Level 3.6, Chloride Level 96L, Carbon Dioxide Level 25, Anion Gap 15H, Blood Urea Nitrogen 8, Creatinine 0.45L, Estimat Glomerular Filtration Rate > 60, BUN/Creatinine Ratio 18, Glucose Level 83, Calcium Level 9.4 Assessment/Plan Assessment/Plan Assess & Plan/Chief Complaint Right hip fracture. C7 fracture. Metastatic lung cancer. Hypokalemia. . . Right hip fracture. C7 fracture. Static lung cancer. Patient complaining of pain the left thigh Clinical Quality Measures DVT/VTE Risk/Contraindication: Risk Factor Score Per Nursin RFS Level Per Nursing on Admit: 4+=Very High SE WILSON DO Dec 17, 2017 08:55
--- NOTE | 2017-12-17 09:18 | Occupational Ther Daily Note ---
OT Current Status-Daily Note Subjective Pt. reports 10/10 pain in hip. Nursing notified and administers pain medication. Appearance Pt. up on BSC when OT entered room. States that she began to hurt when getting out of bed to get to commode. Declines ADLs but agrees to work with OT. Mental Status/Objective Patient Orientation: Person Functional [place] Measure 0=Not Assessed/NA 4=Minimal Assistance 1=Total Assistance 5=Supervision or Setup 2=Maximal Assistance 6=Modified [place] 3=Moderate Assistance 7=Complete [place] Attachments: Oxygen ADL-Treatment Functional [place] Measure 0=Not Assessed/NA 4=Minimal Assistance 1=Total Assistance 5=Supervision or Setup 2=Maximal Assistance 6=Modified [place] 3=Moderate Assistance 7=Complete IndependenceIRFPAI Quality Coding Scale 6 Independent with activity with or without an assistive device 5 Patient requires set up or clean up by helper. Patient completes activity by themselves 4 Supervision or touching assist (CGA). [place] provide cues , steadying assist 3 The helper provides less than half the effort to complete the activity 2 The helper provides more than half the effort to complete the activity 1 Dependent. The helper does all the effort to complete an activity 7 Patient refused to complete or attempt activity 9 The patient did not perform the activity before the current illness or injury 88 Not attempted due to Medical conditions or safety concerns Toileting (FIM): 2 (Pt. required max assist to cleanse lisa area.) Toileting Hygiene (QC): 2 Transfers (B, C, W/C) (FIM): 3 (Mod assist for sit-stand due to pain.) Toilet/Commode Transfer (FIM): 3 Toilet Transfer (QC): 3 Other Treatment Pt. agreed to transfer to wheelchair and go to therapy gym. Pt. tolerated sitting in chair to participate in UE activities, to work on endurance and staying up. Pt. completed peg activity, nut/bolt activity, therapy clothespin activity, all with multiple rest breaks and increased time. Pt. on 3 L 02. Sats taken and are 95% throughout. Pt. is able to shift in chair to assist with pain. All needs met back in room. Transferred to reclining chair. Education OT Patient Education: Correct positioning, Exercise program, Modified ADL techniques, Progress toward Goal/Update tx plan, Purpose of tx/functional activities, Reviewed precautions, Rehab process, Transfer techniques Teaching Recipient: Patient Teaching Methods: Demonstration, Discussion Response to Teaching: Verbalize Understanding, Return Demonstration OT Short Term Goals Short Term Goals Time Frame: Dec 29, 2017 Eating(FIM): 5 Grooming(FIM): 5 Bathing(FIM): 4 Upper Body Dressing(FIM): 5 Lower Body Dressing(FIM): 4 Toileting(FIM): 4 Transfers (B,C,W/C) (FIM): 4 Toilet/Commode Transfer(FIM): 5 Shower Transfer(FIM): 4 Additional Short Term Goals: 1-Demonstrate ADL Tasks, 2-Verbalize Understanding , 3-ImproveStrength/Aviva 1=Demonstrate adherence to instructed precautions during ADL tasks. 2=Patient will verbalize/demonstrate understanding of assistive devices/ modifications for ADL. 3=Patient will improve strength/tolerance for activity to enable patient to perform ADL's. OT Intermediate Goals Hadoop Consultant Goals Time Frame: Jan 05, 2018 Eating (FIM): 6 Eating (QC): 6 Groomin Oral Hygiene (QC): 5 Bathing(FIM): 5 Shower/Bathe Self (QC): 5 Upper Body Dressing(FIM): 5 Upper Body Dressing (QC): 5 Lower Body Dressing(FIM): 5 Lower Body Dressing (QC): 5 On/Off Footwear (QC): 5 Toileting(FIM): 6 Toileting Hygiene (QC): 6 Transfers (B,C,W/C) (FIM): 6 Toilet/Commode Transfer(FIM): 6 Toilet/Commode Transfer (QC): 6 Shower Transfer(FIM): 5 Additional Goals: 1-Demonstrate ADL Tasks, 2-Verbalize Understanding, 3- ImproveStrength/Aviva 1=Demonstrate adherence to instructed precautions during ADL tasks. 2=Patient will verbalize/demonstrate understanding of assistive devices/ modifications for ADL. 3=Patient will improve strength/tolerance for activity to enable patient to perform ADL's. OT Education/Plan Problem List/Assessment Assessment: Decreased Activ Tolerance, Decreased UE Strength, Dependent Transfers, Impaired Bed Mobility, Impaired Funct Balance, Impaired I ADL's, Impaired Self-Care Skills, Restricted Funct UE ROM Discharge Recommendations Plan/Recommendations: Continue POC Therapy D/C Recommendations: Home w/ Family Support, Occupational Therapy Home Care Treatment Plan/Plan of Care Treatment,Training & Education: Yes Patient would benefit from OT for education, treatment and training to promote independence in ADL's, mobility, safety and/or upper extremity function for ADL' s. Plan of Care: ADL Retraining, Functional Mobility, UE Funct Exercise/Act Treatment Duration: Jan 05, 2018 Frequency: At least 5 of 7 days/Wk (IRF) Estimated Hrs Per Day: 1.5 hours per day Agreement: Yes Rehab Potential: Fair Time/GCodes Start Time: 08:15 Stop Time: 09:15 Total Time Billed (hr/min): 60 Billed Treatment Time 1, ADL x 15minutes, FA x 45minutes DIONISIO SLAUGHTER OT Dec 17, 2017 09:18
--- NOTE | 2017-12-17 09:23 | PM & R (SOAP) Progress Note ---
Subjective Time Seen by Provider: 07:50 Subjective/Events-last exam Patient was seen in her room this AM Patient c/o left leg pain Film done at OSH was OK will recheck Discussed case with DR Dr turner No mention of c 7 fracture in notes sent here from OSH but Nurse reports thats why C collar in Place Will check Xray See orders Patient Mod assist for transfers. Review of Systems Musculoskeletal: leg pain Objective Exam Last Set of Vital Signs Vital Signs Date Time Temp Pulse Resp B/P (MAP) Pulse Ox O2 Delivery O2 Flow Rate FiO2 12/17/17 07:56 Nasal Cannula 3.00 12/17/17 04:45 96.9 103 18 98/69 (79) 94 Capillary Refill : Less Than 3 Seconds I&O Intake and Output 12/17/17 00:00 Intake Total 1090 ml Balance 1090 ml Intake Oral 1090 ml # Voids 5 General: Alert, Oriented X3, Cooperative, No Acute Distress HEENT: Atraumatic, PERRLA, EOMI, Mucous Memb Moist/[place] Neck: Supple, No JVD, Other (rigid cervical collar in place) Lungs: Clear to Auscultation Heart: Regular Rate Abdomen: Normal Bowel Sounds, Soft, No Tenderness Extremities: Other (trace edema rt ankle) Neuro: Other (Functional strength with some guarding rt hip due to recent fracture and repair) Results Lab Laboratory Tests 12/16/17 05:35: White Blood Count 7.9, Red Blood Count 3.04L, Hemoglobin 9.0L, Hematocrit 27L, Mean Corpuscular Volume 90, Mean Corpuscular Hemoglobin 30, Mean Corpuscular Hemoglobin Concent 33, Red Cell Distribution Width 16.9H, Platelet Count 461H, Mean Platelet Volume 9.0, Neutrophils (%) (Auto) 87H, Lymphocytes (%) (Auto) 4L , Monocytes (%) (Auto) 8, Eosinophils (%) (Auto) 1, Basophils (%) (Auto) 0, Neutrophils # (Auto) 6.9, Lymphocytes # (Auto) 0.3L, Monocytes # (Auto) 0.7, Eosinophils # (Auto) 0.0, Basophils # (Auto) 0.0, Neutrophils % (Manual) 90, Lymphocytes % (Manual) 1, Monocytes % (Manual) 7, Eosinophils % (Manual) 1, Basophils % (Manual) 0, Band Neutrophils 1, Polychromasia SLIGHT, Anisocytosis SLIGHT, Microcytosis SLIGHT, Sodium Level 137, Potassium Level 2.9L, Chloride Level 94L, Carbon Dioxide Level 28, Anion Gap 15H, Blood Urea Nitrogen 8, Creatinine 0.47L, Estimat Glomerular Filtration Rate > 60, BUN/Creatinine Ratio 17, Glucose Level 98, Calcium Level 9.4, Total Bilirubin 0.5, Aspartate Amino Transf (AST/SGOT) 11, Alanine Aminotransferase (ALT/SGPT) 13, Alkaline Phosphatase 99, Total Protein 6.8, Albumin 2.9L 12/17/17 05:34: Sodium Level 136, Potassium Level 3.6, Chloride Level 96L, Carbon Dioxide Level 25, Anion Gap 15H, Blood Urea Nitrogen 8, Creatinine 0.45L, Estimat Glomerular Filtration Rate > 60, BUN/Creatinine Ratio 18, Glucose Level 83, Calcium Level 9.4 Assessment/Plan Assessment Pathologic fracture rt prox femur s/p fall with hemiarthroplasty OSH toe touch WB RLE C 7 Fracture managed with rigid Collar Lung Ca with mets to bone undergoing palliative RT on an Outpatient basis in [place] COPD o2 dependent Hypokalemia replaced improved Non small cell Lung Ca Protein calorie Malnutrition moderate Chronic anemia HX of Pneumonia Left leg pain Plan Continue PT/OT Team Conference held yesterday-See report for full functional update and POC and ELOS ' The patienr has a daughter who assists her at home in [place] near [place] Rechecked labs Xrays of left femur/hip and C spine- see orders JOSÉ ANTONIO GENAO MD Dec 17, 2017 09:23
--- NOTE | 2017-12-17 10:43 | Diagnostic Imaging Report ---
Indications: Cervical fracture. Comparison: None. Findings: Four views of the cervical spine demonstrate limited visualization of the cervical thoracic junction. A distinct fracture is not identified. There is degenerative disc disease and facet joint arthropathy. Impression: Limited examination for fracture evaluation. Consider CT imaging. Dictated by: Dictated on workstation # [id number]
--- NOTE | 2017-12-17 10:51 | Diagnostic Imaging Report ---
INDICATION: Left hip pain, fall. COMPARISON: None. FINDINGS: Four views of the left thigh demonstrate no no fracture or dislocation. Articular surfaces are age-appropriate. No osseous lesion. IMPRESSION: No fracture or dislocation. Dictated by: Dictated on workstation # [id number]
--- NOTE | 2017-12-17 11:00 | Physical Therapy Daily Note ---
PT Daily Note-Current Subjective Pt. coming back in room after XR when this GAME SHOW HOST enters room. Pt. c/o pain in left low back radiating into LLE at 9/10. Pt. shares that her Mother had cancer and 6 of 13 siblings have had cancer and in their 50s. "I thought I had breast cancer here in my left breast but the Dr probably didnt send me for a mammogram b/c I didnt have Medicaid"..Pt. states her family has made plans to ave her come live with them upon her discharge. Pain Numeric Pain Scale: 9 Location: Left Location Body Site: Back Pain Description: Stabbing Appearance pt. gasps with certain movements and states it is in her back Mental Status Patient Orientation: Normal For Age Attachments: SCD's, Oxygen (3L), Other-See Comments (neck brace) pt. requests SCDs be put on stating they feel really good and help her discomfort. Transfers Functional [place] Measure 0=Not Assessed/NA 4=Minimal Assistance 1=Total Assistance 5=Supervision or Setup 2=Maximal Assistance 6=Modified [place] 3=Moderate Assistance 7=Complete IndependenceIRFPAI Quality Coding Scale 6 Independent with activity with or without an assistive device 5 Patient requires set up or clean up by helper. Patient completes activity by themselves 4 Supervision or touching assist (CGA). [place] provide cues , steadying assist 3 The helper provides less than half the effort to complete the activity 2 The helper provides more than half the effort to complete the activity 1 Dependent. The helper does all the effort to complete an activity 7 Patient refused to complete or attempt activity 9 The patient did not perform the activity before the current illness or injury 88 Not attempted due to Medical conditions or safety concerns Transfers (B, C, W/C) (FIM): 3 Scootin Rollin Supine to/from Sit: 3 Sit to/from Stand: 3 Weight Bearing Right Lower Extremity: Right Partial Weight Bearing Left Lower Extremity: Left Weight Bearing/Tolerated Gait Training Does the Patient Walk?: Yes Gait (FIM): 1 Distance (FIM): 1=up to 49 ft (4ft) Gait Level of Assist: 3 Gait Persons Needed: 1 dance fashion, resisting wt bearing onto LLE, side stepping to bed from w/c Exercises Supine Ex: Ankle pumps, Quad Set, Glut sets, Heel Slides, Hip abd/add Supine Reps: 15 Treatments pt. with 9/10 pain c/o as well as SOB if not at high sitting level in bed , required many rest breaks Assessment Current Status: Poor Progress pt. feels warm to touch, temp 98.8, BP 95/60, HR 94, O2 sats 92%, pt. left in sitting upright position secondary to c/o SOB and pain. PT Short Term Goals Short Term Goals Time Frame: Dec 22, 2017 Transfers (B,C,W/C) (FIM): 4 Gait (FIM): 1 Gait Distance Comment: 30 feet Gait Level of Assist: 4 Gait Assistive Device: FWW Wheelchair (FIM): 4 Wheelchair Distance: 120 feet x2 Wheelchair Level of Assist: 5 PT Halfway Goals Jive Developer Goals PT Halfway Goals Time Frame: Jan 05, 2018 Transfers (B,C,W/C) (FIM): 6 Sit to Lying (QC): 6 Lying-Sitting on Side/Bed(QC): 6 Sit to Stand (QC): 6 Rollin Roll Left to Right (QC): 6 Chair/[id number] Xfer(QC): 6 Car Transfer (QC): 6 Does the Patient Walk: Yes (2) Gait (FIM): 6 Distance: 200 feet Walk 10 feet (QC): 6 Walk 10ft-Uneven Surface(QC): 6 Walk 50ft with 2 Turns (QC): 6 Walk 150 ft (QC): 6 Gait Level of Assist: 6 Gait Assistive Device: FWW Does the Pt use WC or Scooter?: Yes Wheelchair (FIM): 6 Distance: 300 feet Wheelchair Level of Assist: 6 Wheel 50 feet with 2 turns (QC: 6 Stairs (FIM): 2 # of Steps: 4 1 Step (curb) (QC): 6 4 Steps (QC): 6 12 Steps (QC): 9 Stairs Level Of Assist: 6 Picking up an Object (QC): 6 PT Plan Treatment/Plan Treatment Plan: Continue Plan of Care Treatment Plan: Bed Mobility, Education, Functional Activity Aviva, Functional Strength, Group Therapy, Gait, Safety, Therapeutic Exercise, Transfers Treatment Duration: Jan 05, 2018 Frequency: At least 5 of 7 days/Wk (IRF) Estimated Hrs Per Day: 1.5 hours per day Patient and/or Family Agrees t: Yes Safety Risks/Education Patient Education: Transfer Techniques, Correct Positioning, Disease Process, Safety Issues Teaching Recipient: Patient Teaching Methods: Demonstration, Discussion Response to Teaching: Verbalize Understanding Time/GCodes Time In: 1000 Time Out: 1100 Total Billed Treatment Time: 60 Total Billed Treatment 1,FAm,EX20m G Codes Necessary: RICHARD Judd GAME SHOW HOST Dec 17, 2017 11:00
--- NOTE | 2017-12-17 13:24 | Individualized Plan of Care ---
Individualized Plan of Care Rehab Nursing IPOC Order Admission Date Dec 15, 2017 at 14:30 Current Orders Orders Admission (Physician Order) (12/15/17 14:37) Initiate Admission Nursing Pro .admission (12/15/17 14:37) Isolation Central Supply Req (12/15/17 14:37) Admission Arrival Bed Request (12/15/17 14:37) General/Regular (12/15/17 Lunch) Code/Resuscitation (12/15/17 14:40) Weight Bearing Status (12/15/17 14:40) Follow-Up Appointment (12/15/17 14:40) Follow-Up Appointment (12/15/17 14:40) Aspirin Enteric Coated Tablet (Ecotrin T (12/16/17 09:00) Citalopram Tablet (Celexa Tablet) (12/15/17 21:00) Cyclobenzaprine Tablet (Flexeril Tablet) (12/15/17 14:45) Hydrocodone/Apap 10/325 Tablet (Lortab 1 (12/15/17 14:45) Isosorbide Mononitrate Tablet (Imdur Tab (12/16/17 09:00) Metoprolol Tartrate (Ir) Tab (Lopressor (12/15/17 21:00) Nitroglycerin 0.4 Mg Btl 25's (Nitrostat (12/15/17 14:45) Oxycodone/Apap 5/325mg Tablet (Percocet (12/15/17 14:45) Tramadol Tablet (Ultram Tablet) (12/15/17 14:45) Trazodone Tablet (Desyrel Tablet) (12/15/17 21:00) Follow-Up Appointment (12/15/17 14:40) Occupational Therapy Rehab Ord (12/15/17 14:40) Speech Therapy Rehab Orders (12/15/17 14:40) Physical Therapy Rehab Orders (12/15/17 14:40) Rehab Nursing Orders-Ipoc (12/15/17 14:40) Patient Visit (12/15/17 ) Speech Sound Lang Comp (12/15/17 ) Amlodipine Tablet (Norvasc Tablet) (12/16/17 09:00) Albuterol Pre-Mix Nebs (Rt) (Proventil (12/15/17 15:45) Patient Visit (12/15/17 ) Pt Eval High Complexity (12/15/17 ) Exercise Therap, Ea 15 Min (12/15/17 ) Ambulate TID (12/15/17 17:03) Sequential Compression Device 08,20 (12/15/17 17:03) Dvt/Vte Risk - Notifiy Physici (12/15/17 17:03) 24 Hour Oxygen Rt-Rfs (12/15/17 17:37) Influenza Trivalent [id number] (Afluria (12/15/17 17:45) Diphenhydramine Tablet (Benadryl Tablet) (12/15/17 18:45) Consult Physician (12/15/17 18:43) Cbc With Automated Diff (12/16/17 06:00) Comprehensive Metabolic Panel (12/16/17 06:00) Admission-Acute Rehab Unit (12/15/17 20:27) Vital Signs: Routine 08,16,00 (12/15/17 20:27) Change Person-Inpt Rehab (12/15/17 20:27) Rehab Nursing Orders-Ipoc (12/15/17 20:27) Turn And Reposition Q2HR (12/15/17 20:27) Intake & Output 06,14,22 (12/15/17 20:27) Weekly Weight (Lbs) WEEK (12/15/17 20:27) Manual Differential (12/16/17 05:35) Basic Metabolic Panel (12/17/17 06:00) Potassium Chloride (Tablet) (Klor Con Ta (12/16/17 21:00) Potassium Chloride (Tablet) (Klor Con Ta (12/16/17 21:00) Potassium Chloride (Tablet) (Klor Con Ta (12/16/17 09:34) Patient Visit (12/16/17 ) Wheelchair Mgmt/Propulsn 15min (12/16/17 ) Gait Training, Ea 15 Min (12/16/17 ) Exercise Therap, Ea 15 Min (12/16/17 ) Functional Activities, Ea 15 (12/16/17 ) Patient Visit (12/16/17 ) Cervical Spine 3 Views Or Less (12/17/17 09:16) Femur, Left, 2 Views (12/17/17 09:18) Ct Cervical Spine Wo (12/17/17 11:21) Rehab Nursing Orders: Bladder Training, Bowel Program, Diseage Management, Wound Management Other Nursing Orders: monitor for urinary retention and postop constipation and worsening resp in PT IPOC Problem List: Activity Tolerance, Functional Strength, Safety, Balance, Gait, Transfer, Bed Mobility, ROM Treatment Plan: Continue Plan of Care Bed Mobility, Education, Functional Activity Aviva, Functional Strength, Group Therapy, Gait, Safety, Therapeutic Exercise, Transfers Treatment Duration: Jan 05, 2018 Frequency: At least 5 of 7 days/Wk (IRF) Estimated Hrs Per Day: 1.5 hours per day OT IPOC Problems: Decreased Activ Tolerance, Decreased UE Strength, Dependent Transfers , Impaired Bed Mobility, Impaired Funct Balance, Impaired I ADL's, Impaired Self -Care Skills, Restricted Funct UE ROM OT Treatment, Training and Edu: Yes Plan of Care: ADL Retraining, Functional Mobility, UE Funct Exercise/Act Treatment Duration: Jan 05, 2018 Frequency: At least 5 of 7 days/Wk (IRF) Estimated Hrs Per Day: 1.[address] IPOC Speech Therapy Treatment Plan: Discontinue ST Treatment Duration: Dec 17, 2017 Frequency: Modified Program (IRF) Estimated Hrs Per Day: Other Change Person/Case Mgmt Change Person/Case Managemen: Discharge Planning, Patient/Family Counseling Physician IPOC Medical Issues being managed closely and that require the 24 hour availability of a physician:copd with 02 dependence Nonsmall john lung ca with mets to bone c7 fracture s/p fall anemia Medical Issues: Bowel/Bladder Function, DVT Prophylaxis, Falls Precautions, Fluid/Electrolyte/Nutrition Balance, Infection Protection, Pain Management, Weight Bearing Precautions, Wound Care, Other (List) (as per above) Brief Synthesis of Preadmission Screen, Post-Admission Evaluation, and Therapy Evaluations:57 yo female who had been Independent with some assistance from her family being treated in [place] for Lung ca with mets to bone receiving Palliative RT for pain management who fell and sustained a left hip fracture and c7 spine fracture managed with Left hip repair and a rigid collar for C Spine fracture Patient referred here for onging therapies and care Patient and family have declined hospice care.PMH COPD 02 dependent anemia Medical Prognosis: Appears guarded usp Anticipated Length of Stay: 212-16-17 Rehab Goals Maximize level of functional Independenc prior to discharge home with family in [place] Anticipated discharge destinat: Home with family JOSÉ ANTONIO GENAO MD Dec 17, 2017 13:24
--- NOTE | 2017-12-17 13:49 | Physical Therapy Daily Note ---
PT Daily Note-Current Subjective Pt laying Supine in bed upon arrival. Pt agrees to Supine Ex due to incrased pain in L thigh with both EOB sitting and walking. Pain Numeric Pain Scale: 8 Location: Left Location Body Site: Thigh Pain Description: Ache, Tightness Mental Status Patient Orientation: Person, Place, Situation Attachments: Other-See Comments (Cervical Collar) Transfers Functional Harlan Measure 0=Not Assessed/NA 4=Minimal Assistance 1=Total Assistance 5=Supervision or Setup 2=Maximal Assistance 6=Modified Harlan 3=Moderate Assistance 7=Complete IndependenceIRFPAI Quality Coding Scale 6 Independent with activity with or without an assistive device 5 Patient requires set up or clean up by helper. Patient completes activity by themselves 4 Supervision or touching assist (CGA). Casar provide cues , steadying assist 3 The helper provides less than half the effort to complete the activity 2 The helper provides more than half the effort to complete the activity 1 Dependent. The helper does all the effort to complete an activity 7 Patient refused to complete or attempt activity 9 The patient did not perform the activity before the current illness or injury 88 Not attempted due to Medical conditions or safety concerns Weight Bearing Right Lower Extremity: Right Partial Weight Bearing Left Lower Extremity: Left Weight Bearing/Tolerated Exercises Supine Ex: Ankle pumps, Quad Set, Glut sets, Heel Slides, Straight leg raise, Hip abd/add Supine Reps: 15 Treatments Pt completed Supine Ex in bed with a few rest breaks during Ex. Addiction Professional arrived during tx and advised she is working with pt's Insurance Co[employer] to check availability for another week in ARU. Pt resting in bed at end of tx with all needs met. Assessment Current Status: Good Progress Pt is very weak and fatigues quickly. PT Short Term Goals Short Term Goals Time Frame: Dec 22, 2017 Transfers (B,C,W/C) (FIM): 4 Gait (FIM): 1 Gait Distance Comment: 30 feet Gait Level of Assist: 4 Gait Assistive Device: FWW Wheelchair (FIM): 4 Wheelchair Distance: 120 feet x2 Wheelchair Level of Assist: 5 PT Help Desk Technician Goals Detention Goals PT Help Desk Technician Goals Time Frame: Jan 05, 2018 Transfers (B,C,W/C) (FIM): 6 Sit to Lying (QC): 6 Lying-Sitting on Side/Bed(QC): 6 Sit to Stand (QC): 6 Rollin Roll Left to Right (QC): 6 Chair/[id number] Xfer(QC): 6 Car Transfer (QC): 6 Does the Patient Walk: Yes (2) Gait (FIM): 6 Distance: 200 feet Walk 10 feet (QC): 6 Walk 10ft-Uneven Surface(QC): 6 Walk 50ft with 2 Turns (QC): 6 Walk 150 ft (QC): 6 Gait Level of Assist: 6 Gait Assistive Device: FWW Does the Pt use WC or Scooter?: Yes Wheelchair (FIM): 6 Distance: 300 feet Wheelchair Level of Assist: 6 Wheel 50 feet with 2 turns (QC: 6 Stairs (FIM): 2 # of Steps: 4 1 Step (curb) (QC): 6 4 Steps (QC): 6 12 Steps (QC): 9 Stairs Level Of Assist: 6 Picking up an Object (QC): 6 PT Plan Problem List Problem List: Activity Tolerance, Functional Strength, Safety, Balance, Gait, Transfer, Bed Mobility Treatment/Plan Treatment Plan: Continue Plan of Care Treatment Plan: Bed Mobility, Education, Functional Activity Aviva, Functional Strength, Group Therapy, Gait, Safety, Therapeutic Exercise, Transfers Treatment Duration: Jan 05, 2018 Frequency: At least 5 of 7 days/Wk (IRF) Estimated Hrs Per Day: 1.5 hours per day Patient and/or Family Agrees t: Yes Safety Risks/Education Patient Education: Gait Training, Transfer Techniques, Correct Positioning, Safety Issues Teaching Recipient: Patient Teaching Methods: Discussion Response to Teaching: Verbalize Understanding Time/GCodes Time In: 1300 Time Out: 1330 Total Billed Treatment Time: 30 Total Billed Treatment 1, EX x2 (30m) SADIA JOHNSTON SUPERVISOR PAPER COATING Dec 17, 2017 13:49
--- NOTE | 2017-12-17 15:31 | Occupational Ther Daily Note ---
OT Current Status-Daily Note Subjective Pt. states that she is weak. Appearance Pt in bed. Declines at first getting out of bed. Pt. then requests to use BSC. Mental Status/Objective Patient Orientation: Person Functional Daniels Measure 0=Not Assessed/NA 4=Minimal Assistance 1=Total Assistance 5=Supervision or Setup 2=Maximal Assistance 6=Modified Daniels 3=Moderate Assistance 7=Complete Daniels Attachments: Oxygen ADL-Treatment Functional Daniels Measure 0=Not Assessed/NA 4=Minimal Assistance 1=Total Assistance 5=Supervision or Setup 2=Maximal Assistance 6=Modified Daniels 3=Moderate Assistance 7=Complete IndependenceIRFPAI Quality Coding Scale 6 Independent with activity with or without an assistive device 5 Patient requires set up or clean up by helper. Patient completes activity by themselves 4 Supervision or touching assist (CGA). Glendo provide cues , steadying assist 3 The helper provides less than half the effort to complete the activity 2 The helper provides more than half the effort to complete the activity 1 Dependent. The helper does all the effort to complete an activity 7 Patient refused to complete or attempt activity 9 The patient did not perform the activity before the current illness or injury 88 Not attempted due to Medical conditions or safety concerns Toileting (FIM): 2 (Max assist in stance to cleanse front lisa area and pull up /down underwear.) Toileting Hygiene (QC): 2 Transfers (B, C, W/C) (FIM): 3 (Min assist supine-sit. Mod assist sit-stand and transfer to and from bed/BSC.) Toilet/Commode Transfer (FIM): 3 Toilet Transfer (QC): 3 Other Treatment Pt. completed bilateral UE exercises x 15 reps each with yellow theraband x 2 sets. Pt. required multiple rest breaks and fatigued easily. These were performed at bed level. Pt. states that her right hip is hurting. Does not state pain level. X-ray taken and is negative. Nursing notified of pain. All needs met in bed. Education OT Patient Education: Correct positioning, Exercise program, Modified ADL techniques, Progress toward Goal/Update tx plan, Purpose of tx/functional activities, Reviewed precautions, Rehab process, Transfer techniques Teaching Recipient: Patient Teaching Methods: Demonstration, Discussion Response to Teaching: Verbalize Understanding, Return Demonstration OT Short Term Goals Short Term Goals Time Frame: Dec 29, 2017 Eating(FIM): 5 Grooming(FIM): 5 Bathing(FIM): 4 Upper Body Dressing(FIM): 5 Lower Body Dressing(FIM): 4 Toileting(FIM): 4 Transfers (B,C,W/C) (FIM): 4 Toilet/Commode Transfer(FIM): 5 Shower Transfer(FIM): 4 Additional Short Term Goals: 1-Demonstrate ADL Tasks, 2-Verbalize Understanding , 3-ImproveStrength/Aviva 1=Demonstrate adherence to instructed precautions during ADL tasks. 2=Patient will verbalize/demonstrate understanding of assistive devices/ modifications for ADL. 3=Patient will improve strength/tolerance for activity to enable patient to perform ADL's. OT Retirement Goals Addiction Social Worker Goals Time Frame: Jan 05, 2018 Eating (FIM): 6 Eating (QC): 6 Groomin Oral Hygiene (QC): 5 Bathing(FIM): 5 Shower/Bathe Self (QC): 5 Upper Body Dressing(FIM): 5 Upper Body Dressing (QC): 5 Lower Body Dressing(FIM): 5 Lower Body Dressing (QC): 5 On/Off Footwear (QC): 5 Toileting(FIM): 6 Toileting Hygiene (QC): 6 Transfers (B,C,W/C) (FIM): 6 Toilet/Commode Transfer(FIM): 6 Toilet/Commode Transfer (QC): 6 Shower Transfer(FIM): 5 Additional Goals: 1-Demonstrate ADL Tasks, 2-Verbalize Understanding, 3- ImproveStrength/Aviva 1=Demonstrate adherence to instructed precautions during ADL tasks. 2=Patient will verbalize/demonstrate understanding of assistive devices/ modifications for ADL. 3=Patient will improve strength/tolerance for activity to enable patient to perform ADL's. OT Education/Plan Problem List/Assessment Assessment: Decreased Activ Tolerance, Decreased UE Strength, Dependent Transfers, Impaired Bed Mobility, Impaired Funct Balance, Impaired I ADL's, Impaired Self-Care Skills Discharge Recommendations Plan/Recommendations: Continue POC Therapy D/C Recommendations: 24 hr Supervision, Home w/ Family Support, Scheduled Assistance Barriers to Progress Pain, fatigue, and SOA Treatment Plan/Plan of Care Treatment,Training & Education: Yes Patient would benefit from OT for education, treatment and training to promote independence in ADL's, mobility, safety and/or upper extremity function for ADL' s. Plan of Care: ADL Retraining, Functional Mobility, UE Funct Exercise/Act Treatment Duration: Jan 05, 2018 Frequency: At least 5 of 7 days/Wk (IRF) Estimated Hrs Per Day: 1.5 hours per day Agreement: Yes Rehab Potential: Fair Time/GCodes Start Time: 14:00 Stop Time: 14:30 Total Time Billed (hr/min): 30 Billed Treatment Time 1, EX x 15minutes, ADL x 15minutes DIONISIO SLAUGHTER OT Dec 17, 2017 15:31
--- NOTE | 2017-12-17 19:09 | Diagnostic Imaging Report ---
PROCEDURE: CT cervical spine without contrast. TECHNIQUE: Multiple contiguous axial images were obtained through the cervical spine without the use of intravenous contrast. Sagittal and coronal reformations were then performed. INDICATION: Metastatic lung cancer and cervical fracture. FINDINGS: Cervical spinal curvature and alignment are unremarkable. There is expansile destructive lytic lesion involving the left C2 vertebral body extending into the pedicle and lateral elements as well as C2 left lamina and spinous process. There is associated soft tissue mass measuring approximately 4.1 x 2.4 cm which does encroach upon the spinal canal and cause rightward displacement of the spinal cord. There is also an expansile lytic lesion involving C7 vertebral body with moderately severe compression fracture and mild retropulsion which does flatten the ventral thecal sac at this level. Lesion also extends into the posterior elements of C7. No other definite fracture or malalignment is identified. IMPRESSION: Findings are compatible with osseous metastatic disease to the left at C2 resulting in mild spinal stenosis and rightward deviation of the spinal cord. There appears to be pathologic moderate compression fracture at C7 which is also likely due to metastatic disease which indents the thecal sac without significant stenosis appreciated. Dictated by: Dictated on workstation # [id number]
[2017-12-17 19:33] VITALS: BP 103/68
[2017-12-17] MEDS: CYCLOBENZAPRINE 10 MG (FLEXERIL) TAB PO PRN (19:50)
[2017-12-17] MEDS: diphenhydrAMINE 25 MG TAB (BENADRYL) PO PRN (20:28)
[2017-12-17] MEDS: traZODone 100 MG (DESYREL) TAB PO SCH (20:29)
[2017-12-18] MEDS: oxyCODONE/APAP 5/325MG (PERCOCET 5) TABLET PO PRN (05:14)
[2017-12-18 06:36] VITALS: BP 115/68
--- NOTE | 2017-12-18 08:23 | Progress Note (SOAP) ---
Subjective Time Seen by Provider: 08:20 Subjective/Events-last exam CT shows compression fracture. Patient has more pain. Percocet increased Objective Exam Vital Signs Date Time Temp Pulse Resp B/P (MAP) Pulse Ox O2 Delivery O2 Flow Rate FiO2 12/18/17 06:36 98.3 104 17 115/68 (84) 94 Nasal Cannula 3.00 12/17/17 21:20 Nasal Cannula 3.00 12/17/17 20:36 Nasal Cannula 3.00 12/17/17 19:33 97.6 120 16 103/68 (80) 95 Nasal Cannula 3.00 12/17/17 09:00 Nasal Cannula 3.00 I & O 12/18/17 07:00 Intake Total 800 ml Balance 800 ml Capillary Refill : Less Than 3 Seconds General Appearance: No Apparent Distress, WD/WN Assessment/Plan Assessment/Plan Assess & Plan/Chief Complaint Right hip fracture. C7 fracture. Metastatic lung cancer. Hypokalemia. . . Right hip fracture. C7 fracture. Static lung cancer. Patient complaining of pain the left thigh. . 12/18/17. Right hip fracture. Cervical compression fracture. Lung cancer. Metastatic cancer to bone Clinical Quality Measures DVT/VTE Risk/Contraindication: Risk Factor Score Per Nursin RFS Level Per Nursing on Admit: 4+=Very High SE WILSON DO Dec 18, 2017 08:23
[2017-12-18] MEDS: amLODIPine 10 MG (NORVASC) TAB PO SCH (08:49)
[2017-12-18] MEDS: ISOSORBIDE MONONITRATE 30 MG (IMDUR) TAB PO SCH (08:49)
[2017-12-18] MEDS: meTOprolol TARTRATE 50 MG (LOPRESSOR) TAB PO SCH ×2 (08:49→20:48)
[2017-12-18] MEDS: ASPIRIN E.C. 81 MG (ECOTRIN) TAB PO SCH (08:49)
[2017-12-18] MEDS: oxyCODONE/APAP 10/325MG (PERCOCET 10) TABLET PO PRN ×3 (08:50→23:44)
--- NOTE | 2017-12-18 09:54 | PM & R (SOAP) Progress Note ---
Subjective Time Seen by Provider: 07:55 Subjective/Events-last exam Patient was seen in her room this AM Patient Mod assist for transfers CT C Spine reveals Compression fracture c7 and metatstaic Lytic lesion at C2 Pain med increased Appreciate DR San note and orders Review of Systems Musculoskeletal: neck pain, leg pain Objective Exam Last Set of Vital Signs Vital Signs Date Time Temp Pulse Resp B/P (MAP) Pulse Ox O2 Delivery O2 Flow Rate FiO2 12/18/17 09:00 Nasal Cannula 3.00 12/18/17 06:36 98.3 104 17 115/68 (84) 94 Capillary Refill : Less Than 3 Seconds I&O Intake and Output 12/18/17 00:00 Intake Total 820 ml Balance 820 ml Intake Oral 820 ml # Voids 5 General: Alert, Oriented X3, Cooperative, No Acute Distress HEENT: Atraumatic, PERRLA, EOMI, Mucous Memb Moist/[place] Neck: Supple, No JVD, Other (rigid cervical collar in place) Lungs: Clear to Auscultation Heart: Regular Rate Abdomen: Normal Bowel Sounds, Soft, No Tenderness Extremities: Other (trace edema rt ankle) Neuro: Other (Functional strength with some guarding rt hip due to recent fracture and repair) Results Lab Laboratory Tests 12/16/17 05:35: White Blood Count 7.9, Red Blood Count 3.04L, Hemoglobin 9.0L, Hematocrit 27L, Mean Corpuscular Volume 90, Mean Corpuscular Hemoglobin 30, Mean Corpuscular Hemoglobin Concent 33, Red Cell Distribution Width 16.9H, Platelet Count 461H, Mean Platelet Volume 9.0, Neutrophils (%) (Auto) 87H, Lymphocytes (%) (Auto) 4L , Monocytes (%) (Auto) 8, Eosinophils (%) (Auto) 1, Basophils (%) (Auto) 0, Neutrophils # (Auto) 6.9, Lymphocytes # (Auto) 0.3L, Monocytes # (Auto) 0.7, Eosinophils # (Auto) 0.0, Basophils # (Auto) 0.0, Neutrophils % (Manual) 90, Lymphocytes % (Manual) 1, Monocytes % (Manual) 7, Eosinophils % (Manual) 1, Basophils % (Manual) 0, Band Neutrophils 1, Polychromasia SLIGHT, Anisocytosis SLIGHT, Microcytosis SLIGHT, Sodium Level 137, Potassium Level 2.9L, Chloride Level 94L, Carbon Dioxide Level 28, Anion Gap 15H, Blood Urea Nitrogen 8, Creatinine 0.47L, Estimat Glomerular Filtration Rate > 60, BUN/Creatinine Ratio 17, Glucose Level 98, Calcium Level 9.4, Total Bilirubin 0.5, Aspartate Amino Transf (AST/SGOT) 11, Alanine Aminotransferase (ALT/SGPT) 13, Alkaline Phosphatase 99, Total Protein 6.8, Albumin 2.9L 12/17/17 05:34: Sodium Level 136, Potassium Level 3.6, Chloride Level 96L, Carbon Dioxide Level 25, Anion Gap 15H, Blood Urea Nitrogen 8, Creatinine 0.45L, Estimat Glomerular Filtration Rate > 60, BUN/Creatinine Ratio 18, Glucose Level 83, Calcium Level 9.4 Assessment/Plan Assessment Pathologic fracture rt prox femur s/p fall with hemiarthroplasty OSH toe touch WB RLE C 7 Fracture managed with rigid Collar C2 metatsic lytic lesion managed with C Collar Lung Ca with mets to bone undergoing palliative RT on an Outpatient basis in [facility] COPD o2 dependent Hypokalemia replaced improved Non small cell Lung Ca Protein calorie Malnutrition moderate Chronic anemia HX of Pneumonia Left leg pain Plan Continue PT/OT Team Conference held 12-16-17-See report for full functional update and POC and ELOS ' The patienr has a daughter who assists her at home in [place] near [place] Rechecked labs Imaging studies of left femur/hip and C spine- done Continue wit C Collar Was seen By Neurosurgery at [facility] OSH prior to transfers here. JOSÉ ANTONIO GENAO MD Dec 18, 2017 09:54
--- NOTE | 2017-12-18 10:43 | Physical Therapy Daily Note ---
PT Daily Note-Current Subjective Pt. sitting up in recliner, reclined. States her pain is worse today in her left low back and down her left leg yakelin with movement and attempts at stance. Rates pain at "11" States she will go stay with her daughter at [place]. "I cant " when standing is suggested or attempts at walking. Pain Numeric Pain Scale: 10-Worst Possible Pain Location: Left Location Body Site: Back (and into hip and down leg) Pain Description: Stabbing Appearance groggy from pain meds, listless, weak voice, eyes closed much of Rx time Mental Status Patient Orientation: Person, Place, Situation, Listless Attachments: Other-See Comments (rigid cervical collar) Transfers Functional [place] Measure 0=Not Assessed/NA 4=Minimal Assistance 1=Total Assistance 5=Supervision or Setup 2=Maximal Assistance 6=Modified [place] 3=Moderate Assistance 7=Complete IndependenceIRFPAI Quality Coding Scale 6 Independent with activity with or without an assistive device 5 Patient requires set up or clean up by helper. Patient completes activity by themselves 4 Supervision or touching assist (CGA). [place] provide cues , steadying assist 3 The helper provides less than half the effort to complete the activity 2 The helper provides more than half the effort to complete the activity 1 Dependent. The helper does all the effort to complete an activity 7 Patient refused to complete or attempt activity 9 The patient did not perform the activity before the current illness or injury 88 Not attempted due to Medical conditions or safety concerns Transfers (B, C, W/C) (FIM): 3 Scootin Sit to/from Stand: 3 Weight Bearing Right Lower Extremity: Right Partial Weight Bearing Left Lower Extremity: Left Weight Bearing/Tolerated Gait Training Does the Patient Walk?: No and Walking Goal IS indicated pt. attempts standing x2 but aborts quickly secondary to pain. Exercises Supine Ex: Ankle pumps, Quad Set, Glut sets, Heel Slides, Short Arc Quads, Scooting, Straight leg raise (gentle only off bed about 4 in), Hip abd/add Supine Reps: 15 Seated Therapy Exercises: Sit to stand (x2), Long arc quads, Hip abd/add Seated Reps: 10 Treatments sit to stands x 2 with onset of increased pain at 08/18. Discussion with Bonifacio Moe RN re: pts. prognosis, risk for further fractures considering Dx and pts. palns to go home for hospice care and recent expression that she would like to stop wearing the neck brace and be comfortable etc. Possible plans for DC soon Assessment Current Status: Regressing pain limits Rx, little to no tolerance for stance and movement PT Short Term Goals Short Term Goals Time Frame: Dec 22, 2017 Transfers (B,C,W/C) (FIM): 4 Gait (FIM): 1 Gait Distance Comment: 30 feet Gait Level of Assist: 4 Gait Assistive Device: FWW Wheelchair (FIM): 4 Wheelchair Distance: 120 feet x2 Wheelchair Level of Assist: 5 PT Fpc Goals Force Dispatcher Goals PT Fpc Goals Time Frame: Jan 05, 2018 Transfers (B,C,W/C) (FIM): 6 Sit to Lying (QC): 6 Lying-Sitting on Side/Bed(QC): 6 Sit to Stand (QC): 6 Rollin Roll Left to Right (QC): 6 Chair/Adx-dg-Npjfs Xfer(QC): 6 Car Transfer (QC): 6 Does the Patient Walk: Yes (2) Gait (FIM): 6 Distance: 200 feet Walk 10 feet (QC): 6 Walk 10ft-Uneven Surface(QC): 6 Walk 50ft with 2 Turns (QC): 6 Walk 150 ft (QC): 6 Gait Level of Assist: 6 Gait Assistive Device: FWW Does the Pt use WC or Scooter?: Yes Wheelchair (FIM): 6 Distance: 300 feet Wheelchair Level of Assist: 6 Wheel 50 feet with 2 turns (QC: 6 Stairs (FIM): 2 # of Steps: 4 1 Step (curb) (QC): 6 4 Steps (QC): 6 12 Steps (QC): 9 Stairs Level Of Assist: 6 Picking up an Object (QC): 6 PT Plan Treatment/Plan Treatment Plan: Continue Plan of Care Treatment Plan: Bed Mobility, Education, Functional Activity Aviva, Functional Strength, Group Therapy, Gait, Safety, Therapeutic Exercise, Transfers Treatment Duration: Jan 05, 2018 Frequency: At least 5 of 7 days/Wk (IRF) Estimated Hrs Per Day: 1.5 hours per day Patient and/or Family Agrees t: Yes Safety Risks/Education Patient Education: Transfer Techniques Teaching Recipient: Patient Teaching Methods: Demonstration, Discussion Response to Teaching: Unable to Return Demonstration Time/GCodes Time In: 1000 Time Out: 1040 Total Billed Treatment Time: 40 Total Billed Treatment 1,FA25m,EX15m G Codes Necessary: RICHARD Judd CADDYMASTER Dec 18, 2017 10:43
--- NOTE | 2017-12-18 12:00 | Occupational Ther Daily Note ---
OT Current Status-Daily Note Subjective Pt seen in room, up in bed, agreeable to OT. She rated her pain 8/10 in L thigh and nursing brought her some pain meds. Appearance Alert, cooperative Mental Status/Objective Functional [place] Measure 0=Not Assessed/NA 4=Minimal Assistance 1=Total Assistance 5=Supervision or Setup 2=Maximal Assistance 6=Modified [place] 3=Moderate Assistance 7=Complete [place] ADL-Treatment Pt was able to slide her legs to edge of bed but needed a little help to raise her trunk. She scooted to EOB for ADLs. Pt washed and dried all parts except back, bottom and lower legs. pt followed hip precautions during ADLs. Pt educ use of dressing stick to push clothes off and put them on and use of sock aid for donning socks. She was able to return demo. Pt dressed upper body with setup and lower body with mod assist to help her stand and to pull pants up over hips, FWW. She transferred with min-mod assist to recliner, using FWW. She groomed with setup and was able to feed herself without assistance. Discussed equipment needs for home, following hip precautions. She thinks her bed is high enough and knows she can get into her bathroom. Functional [place] Measure 0=Not Assessed/NA 4=Minimal Assistance 1=Total Assistance 5=Supervision or Setup 2=Maximal Assistance 6=Modified [place] 3=Moderate Assistance 7=Complete IndependenceIRFPAI Quality Coding Scale 6 Independent with activity with or without an assistive device 5 Patient requires set up or clean up by helper. Patient completes activity by themselves 4 Supervision or touching assist (CGA). [place] provide cues , steadying assist 3 The helper provides less than half the effort to complete the activity 2 The helper provides more than half the effort to complete the activity 1 Dependent. The helper does all the effort to complete an activity 7 Patient refused to complete or attempt activity 9 The patient did not perform the activity before the current illness or injury 88 Not attempted due to Medical conditions or safety concerns Eating (FIM): 6 Grooming (FIM): 5 Bathing (FIM): 3 Bathing Location: L Arm, R Arm, L Upper Leg, R Upper Leg, Chest, Abdomen, Perineal Area Upper Body (FIM): 5 Lower Body Dressing (FIM): 3 Transfers (B, C, W/C) (FIM): 3 Other Treatment Pt did 15 reps bilat UE exercise using yellow theraband, to strengthen arms to help with transfers and ADLs. Pt recalled several of the exercises herself. pt left up in recliner, O2 in place, all needs met. Education OT Patient Education: Modified ADL techniques, Progress toward Goal/Update tx plan, Purpose of tx/functional activities, Use of adapted equipment Teaching Recipient: Patient Teaching Methods: Demonstration Response to Teaching: Return Demonstration OT Short Term Goals Short Term Goals Time Frame: Dec 29, 2017 Eating(FIM): 5 Grooming(FIM): 5 Bathing(FIM): 4 Upper Body Dressing(FIM): 5 Lower Body Dressing(FIM): 4 Toileting(FIM): 4 Transfers (B,C,W/C) (FIM): 4 Toilet/Commode Transfer(FIM): 5 Shower Transfer(FIM): 4 Additional Short Term Goals: 1-Demonstrate ADL Tasks, 2-Verbalize Understanding , 3-ImproveStrength/Aviva 1=Demonstrate adherence to instructed precautions during ADL tasks. 2=Patient will verbalize/demonstrate understanding of assistive devices/ modifications for ADL. 3=Patient will improve strength/tolerance for activity to enable patient to perform ADL's. OT Detention Goals Detention Goals Time Frame: Jan 05, 2018 Eating (FIM): 6 Eating (QC): 6 Groomin Oral Hygiene (QC): 5 Bathing(FIM): 5 Shower/Bathe Self (QC): 5 Upper Body Dressing(FIM): 5 Upper Body Dressing (QC): 5 Lower Body Dressing(FIM): 5 Lower Body Dressing (QC): 5 On/Off Footwear (QC): 5 Toileting(FIM): 6 Toileting Hygiene (QC): 6 Transfers (B,C,W/C) (FIM): 6 Toilet/Commode Transfer(FIM): 6 Toilet/Commode Transfer (QC): 6 Shower Transfer(FIM): 5 Additional Goals: 1-Demonstrate ADL Tasks, 2-Verbalize Understanding, 3- ImproveStrength/Aviva 1=Demonstrate adherence to instructed precautions during ADL tasks. 2=Patient will verbalize/demonstrate understanding of assistive devices/ modifications for ADL. 3=Patient will improve strength/tolerance for activity to enable patient to perform ADL's. OT Education/Plan Discharge Recommendations Plan/Recommendations: Continue POC Treatment Plan/Plan of Care Patient would benefit from OT for education, treatment and training to promote independence in ADL's, mobility, safety and/or upper extremity function for ADL' s. Plan of Care: ADL Retraining, Functional Mobility, UE Funct Exercise/Act Treatment Duration: Jan 05, 2018 Frequency: At least 5 of 7 days/Wk (IRF) Estimated Hrs Per Day: 1.5 hours per day Agreement: Yes Rehab Potential: Fair Time/GCodes Start Time: 08:30 Stop Time: 09:30 Total Time Billed (hr/min): 60 Billed Treatment Time visit, 50 minutes ADL, 10 minutes exercise JAKE HARDIN OT Dec 18, 2017 12:00
--- NOTE | 2017-12-18 14:30 | Therapy Group Daily Note ---
Therapy Daily Group Note Exercises Fine Motor, UE Exercise Other/Notes Pt. attended group PT OT session this date. Pt. came via w/c with mod to max assist to TRF and portable O2 at 3 L. Pts introduced selves and were social sharing place of and favorite childhood game as well as at end of group; ' words of inspiration'. Pts. in small groups of 3-4 playing their choice of puzzle assembly or checkers, [place] or dominoes. Pt. engaged in sitting balance core stabilization, fine motor, problem solving and pincer grasp during checkers at table. Pt. asked to rest and just observe after about 25 m as she fatigued. Pt. in room after group with mod to max assist to toilet and situate in bed with mckenzie in hand. Start Time: 13:00 Stop Time: 14:05 Total Billed Treatment Time: 65 Total Billed Treatment 1,GRP RICHARD NOVA HOUSEKEEPING ASSOCIATE Dec 18, 2017 14:30
[2017-12-18 18:20] VITALS: BP 97/64
[2017-12-18] MEDS: traZODone 100 MG (DESYREL) TAB PO SCH (20:48)
[2017-12-19 04:26] VITALS: BP 94/64
[2017-12-19] MEDS: oxyCODONE/APAP 10/325MG (PERCOCET 10) TABLET PO PRN ×3 (07:36→20:59)
--- NOTE | 2017-12-19 08:35 | Occupational Ther Daily Note ---
OT Current Status-Daily Note Subjective Pt. reports 10/10 pain in left thigh after therapy starts. States that she has already had pain medication, but it has not "kicked in" yet. Therapy session modified. Appearance Pt. up in wheelchair after PT. Pt. states that she is hungry. Mental Status/Objective Patient Orientation: Person, Place Functional [place] Measure 0=Not Assessed/NA 4=Minimal Assistance 1=Total Assistance 5=Supervision or Setup 2=Maximal Assistance 6=Modified [place] 3=Moderate Assistance 7=Complete [place] Attachments: Oxygen ADL-Treatment Functional [place] Measure 0=Not Assessed/NA 4=Minimal Assistance 1=Total Assistance 5=Supervision or Setup 2=Maximal Assistance 6=Modified [place] 3=Moderate Assistance 7=Complete IndependenceIRFPAI Quality Coding Scale 6 Independent with activity with or without an assistive device 5 Patient requires set up or clean up by helper. Patient completes activity by themselves 4 Supervision or touching assist (CGA). [place] provide cues , steadying assist 3 The helper provides less than half the effort to complete the activity 2 The helper provides more than half the effort to complete the activity 1 Dependent. The helper does all the effort to complete an activity 7 Patient refused to complete or attempt activity 9 The patient did not perform the activity before the current illness or injury 88 Not attempted due to Medical conditions or safety concerns Other Treatment Pt. agrees to work with OT after PT. OT orders pt's breakfast so that it is waiting for her when done. Pt. agrees to work on armbike task for UE strengthening. OT attempts to adjust armbike in different positions. Pt. attempts to do it from moveable table, and from stationary table. Attempts to do it with pillow behind her back, and with one arm. Pt. can't get comfortable , and states that doing this task makes left thigh cramp up. Pt. takes break so that she can rub thigh. Pt. is leaving Thursday so pt. and OT talk about home support and goals for future. Pt. states that daughter will assist her, and that she plans to begin chemotherapy when she discharges. Pt. taken back to room and breakfast in room. Pt. agrees to stay up in wheelchair to eat breakfast. All needs met in room and pt. states that she can set up her own meal. Education OT Patient Education: Correct positioning, Exercise program, Modified ADL techniques, Progress toward Goal/Update tx plan, Purpose of tx/functional activities, Reviewed precautions, Rehab process, Transfer techniques Teaching Recipient: Patient Teaching Methods: Demonstration, Discussion Response to Teaching: Verbalize Understanding, Return Demonstration OT Short Term Goals Short Term Goals Time Frame: Dec 29, 2017 Eating(FIM): 5 Grooming(FIM): 5 Bathing(FIM): 4 Upper Body Dressing(FIM): 5 Lower Body Dressing(FIM): 4 Toileting(FIM): 4 Transfers (B,C,W/C) (FIM): 4 Toilet/Commode Transfer(FIM): 5 Shower Transfer(FIM): 4 Additional Short Term Goals: 1-Demonstrate ADL Tasks, 2-Verbalize Understanding , 3-ImproveStrength/Aviva 1=Demonstrate adherence to instructed precautions during ADL tasks. 2=Patient will verbalize/demonstrate understanding of assistive devices/ modifications for ADL. 3=Patient will improve strength/tolerance for activity to enable patient to perform ADL's. OT Senior Care Goals Snuff Blender Goals Time Frame: Jan 05, 2018 Eating (FIM): 6 Eating (QC): 6 Groomin Oral Hygiene (QC): 5 Bathing(FIM): 5 Shower/Bathe Self (QC): 5 Upper Body Dressing(FIM): 5 Upper Body Dressing (QC): 5 Lower Body Dressing(FIM): 5 Lower Body Dressing (QC): 5 On/Off Footwear (QC): 5 Toileting(FIM): 6 Toileting Hygiene (QC): 6 Transfers (B,C,W/C) (FIM): 6 Toilet/Commode Transfer(FIM): 6 Toilet/Commode Transfer (QC): 6 Shower Transfer(FIM): 5 Additional Goals: 1-Demonstrate ADL Tasks, 2-Verbalize Understanding, 3- ImproveStrength/Aviva 1=Demonstrate adherence to instructed precautions during ADL tasks. 2=Patient will verbalize/demonstrate understanding of assistive devices/ modifications for ADL. 3=Patient will improve strength/tolerance for activity to enable patient to perform ADL's. OT Education/Plan Problem List/Assessment Assessment: Decreased Activ Tolerance, Dependent Transfers, Impaired Bed Mobility, Impaired Funct Balance, Impaired I ADL's, Impaired Self-Care Skills Discharge Recommendations Plan/Recommendations: Continue POC Therapy D/C Recommendations: Home w/ Family Support Treatment Plan/Plan of Care Treatment,Training & Education: Yes Patient would benefit from OT for education, treatment and training to promote independence in ADL's, mobility, safety and/or upper extremity function for ADL' s. Plan of Care: ADL Retraining, Functional Mobility, UE Funct Exercise/Act Treatment Duration: Jan 05, 2018 Frequency: At least 5 of 7 days/Wk (IRF) Estimated Hrs Per Day: 1.5 hours per day Agreement: Yes Rehab Potential: Fair Time/GCodes Start Time: 08:00 Stop Time: 08:25 Total Time Billed (hr/min): 25 Billed Treatment Time 1, EX x 10minutes, FA x 15minutes DIONISIO SLAUGHTER OT Dec 19, 2017 08:35
[2017-12-19 08:48] VITALS: BP 101/62
[2017-12-19] MEDS: ISOSORBIDE MONONITRATE 30 MG (IMDUR) TAB PO SCH (08:52)
[2017-12-19] MEDS: ASPIRIN E.C. 81 MG (ECOTRIN) TAB PO SCH (08:53)
[2017-12-19] MEDS: CYCLOBENZAPRINE 10 MG (FLEXERIL) TAB PO PRN ×2 (08:55→17:44)
--- NOTE | 2017-12-19 09:34 | Physical Therapy Daily Note ---
PT Daily Note-Current Subjective Pt on commode upon arrival. Agreeable to transfer to wheelchair then to therapy room. Reports her family is coming on Thursday for family training and discharge. Pain Numeric Pain Scale: 10-Worst Possible Pain Location: Posterior Location Body Site: Hip (left) Pain Description: Ache Comment: near end of treatment, rated pain 5/10. Mental Status Patient Orientation: Person, Place, Time, Situation Attachments: Oxygen (in situ throughought treatment.) Transfers Functional [place] Measure 0=Not Assessed/NA 4=Minimal Assistance 1=Total Assistance 5=Supervision or Setup 2=Maximal Assistance 6=Modified [place] 3=Moderate Assistance 7=Complete IndependenceIRFPAI Quality Coding Scale 6 Independent with activity with or without an assistive device 5 Patient requires set up or clean up by helper. Patient completes activity by themselves 4 Supervision or touching assist (CGA). [place] provide cues , steadying assist 3 The helper provides less than half the effort to complete the activity 2 The helper provides more than half the effort to complete the activity 1 Dependent. The helper does all the effort to complete an activity 7 Patient refused to complete or attempt activity 9 The patient did not perform the activity before the current illness or injury 88 Not attempted due to Medical conditions or safety concerns Transfers (B, C, W/C) (FIM): 4 Sit to stand with min asssit and skilled cues for sequencing and hand placement. Stood while this therapist performed pericare. SPT to wheelchair with min assist. Up in chair for treatmehnt and post treatment. Weight Bearing Right Lower Extremity: Right Partial Weight Bearing Left Lower Extremity: Left Weight Bearing/Tolerated Exercises Seated Therapy Exercises: Ankle pumps, Long arc quads, Hip flexion (left only) , Hamstring Curls, Hip abd/add Seated Reps: 15 Assessment Current Status: Fair Progress Painful with actual transfer; once seated in the chair, her pain decreases. Active mobilization of her left hip and back are very painful and limit her ability to participate in transfers or gait. Pt is pleasant and motivated but limited by pain. She expresses that she feels her daughter will be able to manage her at home. Pt wanting to return home on Thursday. PT Short Term Goals Short Term Goals Time Frame: Dec 22, 2017 Transfers (B,C,W/C) (FIM): 4 Gait (FIM): 1 Gait Distance Comment: 30 feet Gait Level of Assist: 4 Gait Assistive Device: FWW Wheelchair (FIM): 4 Wheelchair Distance: 120 feet x2 Wheelchair Level of Assist: 5 PT Jail Goals Insurance Processing Clerk Goals PT Insurance Processing Clerk Goals Time Frame: Jan 05, 2018 Transfers (B,C,W/C) (FIM): 6 Sit to Lying (QC): 6 Lying-Sitting on Side/Bed(QC): 6 Sit to Stand (QC): 6 Rollin Roll Left to Right (QC): 6 Chair/Hje-bj-Ysmkz Xfer(QC): 6 Car Transfer (QC): 6 Does the Patient Walk: Yes (2) Gait (FIM): 6 Distance: 200 feet Walk 10 feet (QC): 6 Walk 10ft-Uneven Surface(QC): 6 Walk 50ft with 2 Turns (QC): 6 Walk 150 ft (QC): 6 Gait Level of Assist: 6 Gait Assistive Device: FWW Does the Pt use WC or Scooter?: Yes Wheelchair (FIM): 6 Distance: 300 feet Wheelchair Level of Assist: 6 Wheel 50 feet with 2 turns (QC: 6 Stairs (FIM): 2 # of Steps: 4 1 Step (curb) (QC): 6 4 Steps (QC): 6 12 Steps (QC): 9 Stairs Level Of Assist: 6 Picking up an Object (QC): 6 PT Plan Problem List Problem List: Activity Tolerance, Functional Strength, Safety, Gait, Transfer, Bed Mobility, Other (pain) Treatment/Plan Treatment Plan: Continue Plan of Care Treatment Plan: Bed Mobility, Education, Functional Activity Aviva, Functional Strength, Group Therapy, Gait, Safety, Therapeutic Exercise, Transfers Treatment Duration: Jan 05, 2018 Frequency: At least 5 of 7 days/Wk (IRF) Estimated Hrs Per Day: 1.5 hours per day Patient and/or Family Agrees t: Yes Safety Risks/Education Patient Education: Transfer Techniques, Safety Issues Teaching Recipient: Patient Teaching Methods: Demonstration, Discussion Response to Teaching: Reinforcement Needed Discharge Recommendations Plan Family training and FIM on Thursday Time/GCodes Time In: 730 Time Out: 800 Total Billed Treatment Time: 30 Total Billed Treatment visit FA 10 EX 20 LV NEVILLE PT Dec 19, 2017 09:34
[2017-12-19] MEDS: amLODIPine 10 MG (NORVASC) TAB PO SCH (10:30)
[2017-12-19] MEDS: meTOprolol TARTRATE 50 MG (LOPRESSOR) TAB PO SCH ×2 (10:30→20:55)
[2017-12-19] MEDS ORDERED: POLYETHYLENE GLYCOL 17 GM (MIRALAX) PACK PO NR (10:45)
[2017-12-19 17:43] VITALS: BP 97/62
[2017-12-19] MEDS: POLYETHYLENE GLYCOL 17 GM (MIRALAX) PACK PO SCH (20:55)
[2017-12-19] MEDS: traZODone 100 MG (DESYREL) TAB PO SCH (20:55)
[2017-12-19] MEDS: diphenhydrAMINE 25 MG TAB (BENADRYL) PO PRN (22:04)
[2017-12-20 04:46] VITALS: BP 97/63
[2017-12-20] MEDS: oxyCODONE/APAP 10/325MG (PERCOCET 10) TABLET PO PRN ×3 (05:57→18:38)
[2017-12-20 09:09] VITALS: BP 99/64
[2017-12-20] MEDS: ISOSORBIDE MONONITRATE 30 MG (IMDUR) TAB PO SCH (09:10)
[2017-12-20] MEDS: ASPIRIN E.C. 81 MG (ECOTRIN) TAB PO SCH (09:11)
[2017-12-20] MEDS: amLODIPine 10 MG (NORVASC) TAB PO SCH (09:46)
[2017-12-20] MEDS: meTOprolol TARTRATE 50 MG (LOPRESSOR) TAB PO SCH ×2 (09:46→20:44)
[2017-12-20 17:27] VITALS: BP 100/66
[2017-12-20] MEDS: diphenhydrAMINE 25 MG TAB (BENADRYL) PO PRN (20:44)
[2017-12-20] MEDS: POLYETHYLENE GLYCOL 17 GM (MIRALAX) PACK PO SCH (20:44)
[2017-12-20] MEDS: traZODone 100 MG (DESYREL) TAB PO SCH (20:44)
[2017-12-21] MEDS: oxyCODONE/APAP 10/325MG (PERCOCET 10) TABLET PO PRN ×3 (00:43→11:51)
[2017-12-21 02:24] VITALS: BP 97/59
--- NOTE | 2017-12-21 08:43 | Progress Note (SOAP) ---
Subjective Time Seen by Provider: 08:40 Subjective/Events-last exam Patient having less pain with increase of the pain medication. Patient is wondering when she can have a collar off. Patient has a compression fracture cervical bone Objective Exam Vital Signs Date Time Temp Pulse Resp B/P (MAP) Pulse Ox O2 Delivery O2 Flow Rate FiO2 12/21/17 08:17 92 Nasal Cannula 3.00 12/21/17 02:24 97.5 92 16 97/59 (72) 94 Nasal Cannula 3.00 12/20/17 20:40 Nasal Cannula 3.00 12/20/17 20:19 Nasal Cannula 3.00 12/20/17 17:27 96.5 120 16 100/66 (77) 94 Nasal Cannula 3.00 12/20/17 09:09 97 99/64 (76) 12/20/17 09:08 Nasal Cannula 3.00 I & O 12/21/17 07:00 Intake Total 960 ml Balance 960 ml Capillary Refill : Less Than 3 Seconds General Appearance: No Apparent Distress HEENT: Normal ENT Inspection Neck: Other (Cervical,) Respiratory: Normal Breath Sounds, No Accessory Muscle Use, No Respiratory Distress Cardiovascular: Regular Rate, Rhythm Assessment/Plan Assessment/Plan Assess & Plan/Chief Complaint Right hip fracture. C7 fracture. Metastatic lung cancer. Hypokalemia. . . Right hip fracture. C7 fracture. Static lung cancer. Patient complaining of pain the left thigh. . 12/18/17. Right hip fracture. Cervical compression fracture. Lung cancer. Metastatic cancer to bone. . 12/21/17. Right hip fracture.. Severe cervical compression fracture. Lung cancer. Metastatic cancer to bone. Patient's pain is less Clinical Quality Measures DVT/VTE Risk/Contraindication: Risk Factor Score Per Nursin RFS Level Per Nursing on Admit: 4+=Very High SE WILSON DO Dec 21, 2017 08:43
[2017-12-21] MEDS: CYCLOBENZAPRINE 10 MG (FLEXERIL) TAB PO PRN (09:59)
[2017-12-21] MEDS: meTOprolol TARTRATE 50 MG (LOPRESSOR) TAB PO SCH (09:59)
[2017-12-21] MEDS: ASPIRIN E.C. 81 MG (ECOTRIN) TAB PO SCH (09:59)
[2017-12-21] MEDS: ISOSORBIDE MONONITRATE 30 MG (IMDUR) TAB PO SCH (09:59)
--- NOTE | 2017-12-21 10:11 | Occupational Ther Daily Note ---
OT Current Status-Daily Note Subjective Pt seen in room, up in bed, agreeable to OT. Pain reported 10/10 in L thigh when she was moving - nursing gave her pain meds. Appearance Alert, cooperative Mental Status/Objective Functional [place] Measure 0=Not Assessed/NA 4=Minimal Assistance 1=Total Assistance 5=Supervision or Setup 2=Maximal Assistance 6=Modified [place] 3=Moderate Assistance 7=Complete [place] ADL-Treatment Pt was left up in bed, 3 rails up, O2 in place, all needs met. Functional [place] Measure 0=Not Assessed/NA 4=Minimal Assistance 1=Total Assistance 5=Supervision or Setup 2=Maximal Assistance 6=Modified [place] 3=Moderate Assistance 7=Complete IndependenceIRFPAI Quality Coding Scale 6 Independent with activity with or without an assistive device 5 Patient requires set up or clean up by helper. Patient completes activity by themselves 4 Supervision or touching assist (CGA). [place] provide cues , steadying assist 3 The helper provides less than half the effort to complete the activity 2 The helper provides more than half the effort to complete the activity 1 Dependent. The helper does all the effort to complete an activity 7 Patient refused to complete or attempt activity 9 The patient did not perform the activity before the current illness or injury 88 Not attempted due to Medical conditions or safety concerns Eating (FIM): 6 (Pt reported she was able to open packages and cut food without help and feed herself. No dentures) Eating (QC): 6 Grooming (FIM): 5 (Pt reported that she was able to brush her hair without help. She washed face and hands with setup. ) Oral Hygiene (QC): 5 Bathing (FIM): 4 (Pt washed and dried all parts except lower legs, sponge bath , sitting EOB. ) Bathing Location: L Arm, R Arm, L Upper Leg, R Upper Leg, Chest, Abdomen, Buttocks, Perineal Area Shower/Bathe Self (QC): 3 Upper Body (FIM): 5 (Pt was able to doff and don shirt with setup) Upper Body Dressing (QC): 5 Lower Body Dressing (FIM): 4 (Used dressing stick to push pants off and put clean ones on. Able to pull pants up to thighs but unable to turn hand loose from FWW in standing to pull pants up over hips, due to pain. Pt is able to use sock aid to put socks on. Min-CGA sit to stand from elevated bed. ) Lower Body Dressing (QC): 3 On/Off Footwear (QC): 5 (Able to get slipper socks off with dressing stick and put socks on with sock aid) Toileting (FIM): 3 (Pt helped to push pants down but was unable to pull them up. Able to wipe in front if seated. BSC, FWW) Toileting Hygiene (QC): 3 Toilet/Commode Transfer (FIM): 4 (Min assist sit to stand to get on/off BSC, FWW) Toilet Transfer (QC): 3 Shower Transfer(FIM): 0 (Declined) Family education, then discharge to daughter's home today Education OT Patient Education: Modified ADL techniques, Progress toward Goal/Update tx plan, Purpose of tx/functional activities, Use of adapted equipment Teaching Recipient: Patient Teaching Methods: Discussion Response to Teaching: Verbalize Understanding, Return Demonstration OT Short Term Goals Short Term Goals Time Frame: Dec 29, 2017 Eating(FIM): 5 Grooming(FIM): 5 Bathing(FIM): 4 Upper Body Dressing(FIM): 5 Lower Body Dressing(FIM): 4 Toileting(FIM): 4 Transfers (B,C,W/C) (FIM): 4 Toilet/Commode Transfer(FIM): 5 Shower Transfer(FIM): 4 Additional Short Term Goals: 1-Demonstrate ADL Tasks, 2-Verbalize Understanding , 3-ImproveStrength/Aviva 1=Demonstrate adherence to instructed precautions during ADL tasks. 2=Patient will verbalize/demonstrate understanding of assistive devices/ modifications for ADL. 3=Patient will improve strength/tolerance for activity to enable patient to perform ADL's. OT Tour Manager Goals Tour Manager Goals Time Frame: Jan 05, 2018 Eating (FIM): 6 Eating (QC): 6 Groomin Oral Hygiene (QC): 5 Bathing(FIM): 5 Shower/Bathe Self (QC): 5 Upper Body Dressing(FIM): 5 Upper Body Dressing (QC): 5 Lower Body Dressing(FIM): 5 Lower Body Dressing (QC): 5 On/Off Footwear (QC): 5 Toileting(FIM): 6 Toileting Hygiene (QC): 6 Transfers (B,C,W/C) (FIM): 6 Toilet/Commode Transfer(FIM): 6 Toilet/Commode Transfer (QC): 6 Shower Transfer(FIM): 5 Additional Goals: 1-Demonstrate ADL Tasks, 2-Verbalize Understanding, 3- ImproveStrength/Aviva 1=Demonstrate adherence to instructed precautions during ADL tasks. 2=Patient will verbalize/demonstrate understanding of assistive devices/ modifications for ADL. 3=Patient will improve strength/tolerance for activity to enable patient to perform ADL's. OT Education/Plan Discharge Recommendations Plan/Recommendations: Continue POC Treatment Plan/Plan of Care Patient would benefit from OT for education, treatment and training to promote independence in ADL's, mobility, safety and/or upper extremity function for ADL' s. Plan of Care: ADL Retraining, Functional Mobility, UE Funct Exercise/Act Treatment Duration: Jan 05, 2018 Frequency: At least 5 of 7 days/Wk (IRF) Estimated Hrs Per Day: 1.5 hours per day Agreement: Yes Rehab Potential: Fair Time/GCodes Start Time: 09:30 Stop Time: 10:00 Total Time Billed (hr/min): 30 Billed Treatment Time visit, 30 minutes ADL JAKE HARDIN OT Dec 21, 2017 10:11
--- NOTE | 2017-12-21 11:41 | Occupational Ther Daily Note ---
OT Current Status-Daily Note Subjective Pt seen in room, up in bed, daughter and her family present. Pt cont with pain and waiting for meds Appearance Alert, cooperative Mental Status/Objective Functional [place] Measure 0=Not Assessed/NA 4=Minimal Assistance 1=Total Assistance 5=Supervision or Setup 2=Maximal Assistance 6=Modified [place] 3=Moderate Assistance 7=Complete [place] ADL-Treatment Functional [place] Measure 0=Not Assessed/NA 4=Minimal Assistance 1=Total Assistance 5=Supervision or Setup 2=Maximal Assistance 6=Modified [place] 3=Moderate Assistance 7=Complete IndependenceIRFPAI Quality Coding Scale 6 Independent with activity with or without an assistive device 5 Patient requires set up or clean up by helper. Patient completes activity by themselves 4 Supervision or touching assist (CGA). [place] provide cues , steadying assist 3 The helper provides less than half the effort to complete the activity 2 The helper provides more than half the effort to complete the activity 1 Dependent. The helper does all the effort to complete an activity 7 Patient refused to complete or attempt activity 9 The patient did not perform the activity before the current illness or injury 88 Not attempted due to Medical conditions or safety concerns Other Treatment Reviewed hip precautions with patient and daughter and how they affect ADLs. Also briefly discussed equipment, including BSC, tall chair at home, hip kit items. All verbalized understanding and identified equipment they have at home. Also reviewed UE exercises with yellow theraband, focusing on ones needed to help with getting up and down. Pt verbalized understanding. Provided written instructions on hip precautions and home exercises. All questions answered to their satisfaction. DC OT Education OT Patient Education: Home exercise program, Instructions to caregiver, Modified ADL techniques, Progress toward Goal/Update tx plan, Purpose of tx/ functional activities, Use of adapted equipment Teaching Recipient: Patient, Family Teaching Methods: Discussion Response to Teaching: Verbalize Understanding OT Short Term Goals Short Term Goals Time Frame: Dec 29, 2017 Eating(FIM): 5 Grooming(FIM): 5 Bathing(FIM): 4 Upper Body Dressing(FIM): 5 Lower Body Dressing(FIM): 4 Toileting(FIM): 4 Transfers (B,C,W/C) (FIM): 4 Toilet/Commode Transfer(FIM): 5 Shower Transfer(FIM): 4 Additional Short Term Goals: 1-Demonstrate ADL Tasks, 2-Verbalize Understanding , 3-ImproveStrength/Aviva 1=Demonstrate adherence to instructed precautions during ADL tasks. 2=Patient will verbalize/demonstrate understanding of assistive devices/ modifications for ADL. 3=Patient will improve strength/tolerance for activity to enable patient to perform ADL's. OT Halfway Goals Tool Repairer Bench Goals Time Frame: Jan 05, 2018 Eating (FIM): 6 (met 2--18) Eating (QC): 6 (met 12-21-18) Groomin (met 18) Oral Hygiene (QC): 5 (met 18) Bathing(FIM): 5 (not met 18) Shower/Bathe Self (QC): 5 (not met 18) Upper Body Dressing(FIM): 5 (met 18) Upper Body Dressing (QC): 5 (met 18) Lower Body Dressing(FIM): 5 (not met 18) Lower Body Dressing (QC): 5 (not met 12-21-17) On/Off Footwear (QC): 5 (met 12-21-17) Toileting(FIM): 6 (not met 18) Toileting Hygiene (QC): 6 (not met 18) Transfers (B,C,W/C) (FIM): 6 Toilet/Commode Transfer(FIM): 6 (not met 18) Toilet/Commode Transfer (QC): 6 (not met 18) Shower Transfer(FIM): 5 (not met 18) Additional Goals: 1-Demonstrate ADL Tasks, 2-Verbalize Understanding, 3- ImproveStrength/Aviva 1=Demonstrate adherence to instructed precautions during ADL tasks. 2=Patient will verbalize/demonstrate understanding of assistive devices/ modifications for ADL. 3=Patient will improve strength/tolerance for activity to enable patient to perform ADL's. OT Education/Plan Discharge Recommendations Plan/Recommendations: Discharge/Goals Met Treatment Plan/Plan of Care Patient would benefit from OT for education, treatment and training to promote independence in ADL's, mobility, safety and/or upper extremity function for ADL' s. Plan of Care: ADL Retraining, Functional Mobility, UE Funct Exercise/Act Treatment Duration: Jan 05, 2018 Frequency: At least 5 of 7 days/Wk (IRF) Estimated Hrs Per Day: 1.5 hours per day Agreement: Yes Rehab Potential: Fair Time/GCodes Start Time: 11:20 Stop Time: 11:32 Total Time Billed (hr/min): 12 Billed Treatment Time visit, 12 minutes functional activity JAKE HARDIN OT Dec 21, 2017 11:41
--- NOTE | 2017-12-21 11:49 | Therapy Team Discharge Summary ---
Therapy Discharge Summary Discharge Recommendations Date of Discharge 12-21-17 Therapy D/C Recommendations: Home w/ Family Support Occupational Therapy Pt was seen for skilled OT to increase her independence in basic self care after total hip surgery, with hip precautions. Pt also has cervical collar due to fx from cancer. On admission she needed minimal assistance with upper body dressing, moderate assistance with bathing and toilet transfers and was dependant for lower body dressing and toileting. By discharge she had progressed to modified independent with eating, setup for grooming and upper body dressing, min assist bathing and lower body dressing and toilet transfers and mod assist with toileting. Equipment used included BSC, FWW, dressing stick , sock aid. Pt and family education on home exercise program and hip precautions. Pt discharged to her daughter's house. May benefit from home health OT. See tx plan for goals met. DC OT. Decreased Activ Tolerance, Dependent Transfers, Impaired Bed Mobility, Impaired Funct Balance, Impaired I ADL's, Impaired Self-Care Skills PT Light Rail Train Operator Goals Half-Way Goals PT Light Rail Train Operator Goals Time Frame: Jan 05, 2018 Transfers (B,C,W/C) (FIM): 5 Roll Left to Right (QC): 4 Sit to Lying (QC): 4 Lying-Sitting on Side/Bed(QC): 4 Sit to Stand (QC): 4 Chair/Jhe-re-Sdzwx Xfer(QC): 4 Car Transfer (QC): 4 Does the Patient Walk: Yes Gait (FIM): 5 Distance: 200 feet Walk 10 feet (QC): 4 Walk 10ft-Uneven Surface(QC): 4 Walk 50ft with 2 Turns (QC): 4 Walk 150 ft (QC): 4 Gait Level of Assist: 5 Gait Assistive Device: FWW Does the Pt use WC or Scooter?: Yes Wheelchair (FIM): 6 Distance: 300 feet Wheelchair Level of Assist: 6 Wheel 50 feet with 2 turns (QC: 6 Stairs (FIM): 2 # of Steps: 4 1 Step (curb) (QC): 4 4 Steps (QC): 4 Stairs Level Of Assist: 4 OT Light Rail Train Operator Goals Light Rail Train Operator Goals Time Frame: Jan 05, 2018 Eating (FIM): 6 (met 2-12-18) Eating (QC): 6 (met 12-21-18) Oral Hygiene (QC): 5 (met --18) Grooming(FIM): 5 (met 218) Bathing(FIM): 5 (not met 18) Shower/Bathe Self (QC): 5 (not met 12-21-18) Upper Body Dressing(FIM): 5 (met 2--18) Upper Body Dressing (QC): 5 (met 18) Lower Body Dressing(FIM): 5 (not met 18) Lower Body Dressing (QC): 5 (not met 18) On/Off Footwear (QC): 5 (met 12-21-17) Toileting(FIM): 6 (not met 12-21-17) Toileting Hygiene (QC): 6 (not met 12-21-17) Transfers (B,C,W/C) (FIM): 6 Toilet/Commode Transfer(FIM): 6 (not met 18) Toilet/Commode Transfer (QC): 6 (not met 12-21-17) Shower Transfer(FIM): 5 (not met 18) Additional Goals: 1-Demonstrate ADL Tasks, 2-Verbalize Understanding, 3- ImproveStrength/Aviva 1=Demonstrate adherence to instructed precautions during ADL tasks. 2=Patient will verbalize/demonstrate understanding of assistive devices/ modifications for ADL. 3=Patient will improve strength/tolerance for activity to enable patient to perform ADL's. JAKE HARDIN OT Dec 21, 2017 11:49
--- NOTE | 2017-12-21 16:16 | Physical Therapy Daily Note ---
PT Daily Note-Current Subjective Going home today. Pt and daughter voice they feel they can manage her care and transfers at home. No questions regarding transfers. Pain Numeric Pain Scale: 8 Pain Description: Ache Comment: multiple locattions "general" Mental Status Patient Orientation: Person, Place, Time, Situation Transfers Functional [place] Measure 0=Not Assessed/NA 4=Minimal Assistance 1=Total Assistance 5=Supervision or Setup 2=Maximal Assistance 6=Modified [place] 3=Moderate Assistance 7=Complete IndependenceIRFPAI Quality Coding Scale 6 Independent with activity with or without an assistive device 5 Patient requires set up or clean up by helper. Patient completes activity by themselves 4 Supervision or touching assist (CGA). [place] provide cues , steadying assist 3 The helper provides less than half the effort to complete the activity 2 The helper provides more than half the effort to complete the activity 1 Dependent. The helper does all the effort to complete an activity 7 Patient refused to complete or attempt activity 9 The patient did not perform the activity before the current illness or injury 88 Not attempted due to Medical conditions or safety concerns Transfers (B, C, W/C) (FIM): 3 Roll Left to Right (QC): 4 Sit to Lying (QC): 3 Sit to Stand (QC): 3 Chair/Fdz-bs-Hkrmx Xfer(QC): 3 Car Transfer (QC): 2 Reviewed hand placment and safety with pt and daughter for transfers. Weight Bearing Right Lower Extremity: Right Partial Weight Bearing (25% WB) Left Lower Extremity: Left Weight Bearing/Tolerated Gait Training Does the Patient Walk?: No and Walking Goal IS indicated Gait (FIM): 0 (unable this date; pain limits) Walk 10 feet (QC): 88 Walk 50 ft with 2 Turns(QC): 88 Walk 150 ft (QC): 88 Wheelchair Training Does the Pt Use a Wheelchair?: Yes Wheelchair (FIM): 4 Wheelchair Distance: 3=150 ft Wheelchair Level of Assist: 4 Wheel 50 ft with 2 turns (QC): 4 Wheel 150 ft (QC): 4 Type of Wheelchair: Manual Stair Training Stairs (FIM): 1 (pt declined attempting due to pain; plans to use a wheelchair and ramp at home. ) 1 Step (curb) (QC): 88 4 Steps (QC): 88 12 Steps (QC): 88 Balance Picking up an Object (QC): 88 Treatments Discussion and education with patient and family on transfers and safe patient handling. Pt and daughter voiced and demonstrated competency. Assessment Limited functrional progress due to pain and limited tolerance to skilled thearpy. Pt cooperative and pleasant, just limited ability to participate due to pain. PT Short Term Goals Short Term Goals Time Frame: Dec 22, 2017 Transfers (B,C,W/C) (FIM): 4 Gait (FIM): 1 Gait Distance Comment: 30 feet Gait Level of Assist: 4 Gait Assistive Device: FWW Wheelchair (FIM): 5 Wheelchair Distance: 120 feet x2 Wheelchair Level of Assist: 5 PT Group Home Goals [employer] Goals PT Group Home Goals Time Frame: Jan 05, 2018 Transfers (B,C,W/C) (FIM): 5 Sit to Lying (QC): 4 Lying-Sitting on Side/Bed(QC): 4 Sit to Stand (QC): 4 Rollin Roll Left to Right (QC): 4 Chair/Hqw-dg-Uunyk Xfer(QC): 4 Car Transfer (QC): 4 Does the Patient Walk: Yes Gait (FIM): 5 Distance: 200 feet Walk 10 feet (QC): 4 Walk 10ft-Uneven Surface(QC): 4 Walk 50ft with 2 Turns (QC): 4 Walk 150 ft (QC): 4 Gait Level of Assist: 5 Gait Assistive Device: FWW Does the Pt use WC or Scooter?: Yes Wheelchair (FIM): 6 Distance: 300 feet Wheelchair Level of Assist: 6 Wheel 50 feet with 2 turns (QC: 6 Stairs (FIM): 2 # of Steps: 4 1 Step (curb) (QC): 4 4 Steps (QC): 4 Stairs Level Of Assist: 4 No goals met at this time. Pt and family decline [facility] PT to continue to address her function PT Plan Problem List Problem List: Activity Tolerance, Functional Strength, Safety Treatment/Plan Treatment Plan: Discontinue PT Treatment Plan: Bed Mobility, Concurrent Therapy, Education, Functional Activity Aviva, Functional Strength, Group Therapy, Gait, Safety, Therapeutic Exercise, Transfers Treatment Duration: Jan 05, 2018 Frequency: At least 5 of 7 days/Wk (IRF) Estimated Hrs Per Day: 1.5 hours per day Patient and/or Family Agrees t: Yes Safety Risks/Education Patient Education: Transfer Techniques, Safety Issues Teaching Recipient: Patient, Family Teaching Methods: Demonstration, Discussion Response to Teaching: Return Demonstration Discharge Recommendations Therapy D/C Recommendations: Physical Therapy Home Care (recommend but pt declined) Time/GCodes Time In: 1155 Time Out: 1145 Total Billed Treatment Time: 1215 Total Billed Treatment 30 LV NEVILLE PT Dec 21, 2017 16:16
--- NOTE | 2017-12-21 19:12 | PM & R (SOAP) Progress Note ---
Subjective Time Seen by Provider: 12:00 Subjective/Events-last exam Contacted by SW that patient ready to go home with her daughter as not able to tolerate acute rehab Patient and daughter decline hospice Objective Exam Last Set of Vital Signs Vital Signs Date Time Temp Pulse Resp B/P (MAP) Pulse Ox O2 Delivery O2 Flow Rate FiO2 12/21/17 09:00 Nasal Cannula 3.00 12/21/17 08:17 92 12/21/17 02:24 97.5 92 16 97/59 (72) Capillary Refill : Less Than 3 Seconds I&O Intake and Output 12/21/17 00:00 Intake Total 1240 ml Balance 1240 ml Intake Oral 1240 ml # Voids 2 General: Alert, Oriented X3, Cooperative, No Acute Distress HEENT: Atraumatic, PERRLA, EOMI, Mucous Memb Moist/[place]: Supple, No JVD, Other (rigid cervical collar in place) Lungs: Clear to Auscultation Heart: Regular Rate Abdomen: Normal Bowel Sounds, Soft, No Tenderness Extremities: Other (trace edema rt ankle) Neuro: Other (Functional strength with some guarding rt hip due to recent fracture and repair) Assessment/Plan Assessment Pathologic fracture rt prox femur s/p fall with hemiarthroplasty OSH toe touch WB RLE C 7 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 JOSÉ ANTONIO GENAO MD Dec 21, 2017 19:12
--- NOTE | 2017-12-22 08:39 | Therapy Team Discharge Summary ---
Therapy Discharge Summary Discharge Recommendations Date of Discharge Dec 21, 2017 at 12:32 Therapy D/C Recommendations: Physical Therapy Home Care (recommend but pt declined) Physical Therapy This patient was admitted to ARU post fall that resulted in right femur fx and cervical fracture; she is also currently being treated for cancer. Prior to fall, she was mod assist with transfers and bed mobility but once on her feet, could ambulate with SB-Mod indep. She was living with her daughter and her daughter managed most of her needs and care. Upon admit to this unit, she was max assist with transfers, ambulated 3 ft with FWW with assist and could propel her wheelchair 100 ft with min assist. Her treatment has consisted of functional transfers, attempst to progress gait and wheelchair mobility as well as pain managemnt and functional activity progression. Her progress has been limited due to pain and pain that she reports in her left hip (opposite of the fractured side.) Difficult to provide intensive therapies due to her complicated cancer history, and pain levels. Pt wanted to discharge home with her daughter. Family training provided; pt and daughter report they feel able to manage at home as the daughter has been providing extensive care prior to admit. She has not met any goals. Will discharge home with family. Occupational Therapy Decreased Activ Tolerance, Dependent Transfers, Impaired Bed Mobility, Impaired Funct Balance, Impaired I ADL's, Impaired Self-Care Skills PT Retirement Goals Emergency Medical Services Coordinator Goals PT Emergency Medical Services Coordinator Goals Time Frame: Jan 05, 2018 Transfers (B,C,W/C) (FIM): 5 (unmet, scored 3) Roll Left to Right (QC): 4 (unmet, scored 3) Sit to Lying (QC): 4 (unmet, scored 3) Lying-Sitting on Side/Bed(QC): 4 (nmet scored 3) Sit to Stand (QC): 4 (unmet, scord 3) Chair/Elh-xq-Vcxjm Xfer(QC): 4 (scored 3; unmet) Car Transfer (QC): 4 (unmet, max to dep) Does the Patient Walk: Yes Gait (FIM): 5 (unmet; unable due to pain) Distance: 200 feet Walk 10 feet (QC): 4 (unmet) Walk 10ft-Uneven Surface(QC): 4 (unmet) Walk 50ft with 2 Turns (QC): 4 (unmet) Walk 150 ft (QC): 4 (unmet) Gait Level of Assist: 5 Gait Assistive Device: FWW Does the Pt use WC or Scooter?: Yes Wheelchair (FIM): 6 (unmet, scored 4) Distance: 300 feet Wheelchair Level of Assist: 6 Wheel 50 feet with 2 turns (QC: 6 (unmet) Stairs (FIM): 2 (unmet, unable scored 1) # of Steps: 4 1 Step (curb) (QC): 4 (unmet) 4 Steps (QC): 4 (unmet) Stairs Level Of Assist: 4 ([place]) Goals unmet primarily due to pt declining participation due to pain. Pt and daughter report they will manage at the wheelchair level. OT Emergency Medical Services Coordinator Goals Retirement Goals Time Frame: Jan 05, 2018 Eating (FIM): 6 (met 2--18) Eating (QC): 6 (met 2--18) Oral Hygiene (QC): 5 (met 2--18) Grooming(FIM): 5 (met 2--18) Bathing(FIM): 5 (not met 2--18) Shower/Bathe Self (QC): 5 (not met 2--18) Upper Body Dressing(FIM): 5 (met 2--18) Upper Body Dressing (QC): 5 (met 2--18) Lower Body Dressing(FIM): 5 (not met 2-12-18) Lower Body Dressing (QC): 5 (not met 2-12-18) On/Off Footwear (QC): 5 (met 2--18) Toileting(FIM): 6 (not met 2--18) Toileting Hygiene (QC): 6 (not met 2-12-18) Transfers (B,C,W/C) (FIM): 6 Toilet/Commode Transfer(FIM): 6 (not met 2-12-18) Toilet/Commode Transfer (QC): 6 (not met 2-12-18) Shower Transfer(FIM): 5 (not met 2-12-18) Additional Goals: 1-Demonstrate ADL Tasks, 2-Verbalize Understanding, 3- ImproveStrength/Aviva 1=Demonstrate adherence to instructed precautions during ADL tasks. 2=Patient will verbalize/demonstrate understanding of assistive devices/ modifications for ADL. 3=Patient will improve strength/tolerance for activity to enable patient to perform ADL's. LV NEVILLE PT Dec 22, 2017 08:39
--- NOTE | 2017-12-23 09:45 | DISCHARGE SUMMARY ---
DATE OF SERVICE: HISTORY OF PRESENT ILLNESS: The patient is a 57-year-old disabled female with metastatic lung cancer to the bone, who fell at home and sustained a pathologic fracture of the right hip. She was admitted to [facility]. The patient underwent a right hemiarthroplasty with orthopedics. The patient is 25% weightbearing, right lower limb. She also sustained a C7 fracture, which is managed with a rigid collar. The patient was referred to inpatient rehabilitation unit with a goal of maximizing level of functional Drew prior to discharge home in [place] with her daughter. The patient also has chronic anemia. She was being followed by Radiation Oncologist for palliative RT of bone pain. She is on O2 by nasal cannula 2 liters per minute. The patient did have assistance from her family prior to this and did require some assistance for transfers and supervision for gait with a walker at home, but had a decline in functional independence due to the above. PAST MEDICAL HISTORY: COPD, O2 dependent; pneumonia; non small cell cancer of the right lung; protein-calorie malnutrition, closed fracture of the neck of the right femur as per above; anemia. MEDICAL COURSE: The patient continued on her medications. Pain meds were adjusted. She had difficulty participating in three hours of therapy a day. A CT of the cervical spine revealed findings compatible with osseous metastatic disease at C2 level and a pathologic moderate compression fracture of C7. CBC on 12/16/2017, showed WBC of 7.9, H and H 9/27, platelet count [id number]. Chemistry on 12/17/2017, showed chloride of 96, creatinine of 0.45, calcium 9.4, potassium 2.9 on 12/16/2017, with replacement provided. construction pit worker assisted the patient and her daughter with discharge to home. They have declined senior living placement or hospice care or DNR status. As they have a [place] Medicaid card, they are not eligible for outpatient therapies or home health care therapies. She was afebrile during her stay. Her pulse was 92 on 12/21/2017, respirations 18, blood pressure 97/59 and O2 sat 94% on 3 liters of O2. REHABILITATION COURSE: She was assessed by speech therapy, found to be functional cognitive-ram and they signed off. OT notes upon admission, she required min assist with upper body dressing, mod assist for bathing and toilet transfers, and was dependent for lower body dressing and toileting. By discharge, she progressed to modified independent with eating, set up for grooming and upper body dressing, min assist for bathing and lower body dressing and toilet transfers and mod assist with toileting. They were recommended home health care, but none is available through the patient's insurance plan. Hopefully, the patient and her daughter will reconsider hospice care and palliative care in the near future as prognosis appears somewhat guarded and this may qualify the patient's for more services. PT notes that prior to her fall, the patient was mod assist for transfers and bed mobility, but once on her feet could ambulate with standby assist to modified independence. Upon admission to rehab, she was max assist with transfers, could ambulate 3 feet with a front wheeled walker and could propel a wheelchair on her feet with min assist. Her progresses has been limited due to pain and a rigid cervical collar and the pain that she reports in her left hip fracture opposite of the fractured site. Upon discharge, she remained max assist for transfers to dependent times. DISCHARGE INSTRUCTIONS: She will have followup with her PCP and [facility] as per their schedule. Continue current diet. She remains 25% weightbearing, right lower extremity. DISCHARGE MEDICATIONS: ProAir HFA 2 puffs q.6h. p.r.n. shortness of breath; ASA 81 mg p.o. daily; citalopram 20 mg p.o. at bedtime; O2 by nasal cannula to maintain sats more than 92%; Flexeril 10 mg p.o. t.i.d. p.r.n. muscle spasms; hydrocodone APAP 10/325 one tablet p.o. q.8h. p.r.n. breakthrough pain; isosorbide mononitrate ER 30 mg p.o. daily; metoprolol 50 mg p.o. b.i.d.; nitroglycerin 0.4 mg sublingual p.r.n. chest pain; Spiriva 2 puffs inhalation daily; tramadol 50 mg p.o. q.8h p.r.n. moderate pain; trazodone 100 mg p.o. at bedtime. DISCHARGE DIAGNOSES: 1. Rehabilitation ambulatory dysfunction secondary to fall with pathologic fracture to proximal left femur, status post left hemiarthroplasty. Orthopedics, [facility], toe touch weightbearing, right lower extremity. 2. Chronic obstructive pulmonary disease, O2 dependent. 3. History of pneumonia. 4. Non-small cell cancer to right lung with mets to bone. 5. Protein-calorie malnutrition, moderate 6. Chronic anemia. 7. C7 fracture, cervical spine, status post fall, managed with rigid cervical collar. 8. Insomnia, on meds. 9. Metastatic lytic lesion involving the left C2 vertebral body managed with a rigid cervical collar. 10. Depression, on medication. 11. Hypertension, controlled on medication. 12. Hypokalemia -replaced 13. Left Lower leg pain 14.O2 dependent CONDITION AT DISCHARGE: Somewhat improved and stable. PROGNOSIS: Rehab prognosis and medical prognosis appears guarded for this patient with metastatic lung cancer to the bone. Job ID: [id number] DocumentID: [id number] Dictated Date: 12/22/2017 14:46:16 [employer] Date: 12/23/2017 09:44:59 Dictated By: JOSÉ ANTONIO GENAO MD MTDD
== END 2017-12-21 12:32 | disposition home or self-care (01) | DRG 560 ==
LOC: EDSTATUS 14:42
PROVIDERS: ADMIT Physical Medicine & Rehabilitation; ATTEND Physical Medicine & Rehabilitation
DX: M84.451D Pathological fracture, right femur, subsequent encounter for fracture with routine healing (principal); C34.91 Malignant neoplasm of unspecified part of right bronchus or lung; C79.51 Secondary malignant neoplasm of bone; D64.9 Anemia, unspecified; J44.9 Chronic obstructive pulmonary disease, unspecified; E44.0 Moderate protein-calorie malnutrition; E87.6 Hypokalemia; G47.00 Insomnia, unspecified; Z87.01 Personal history of pneumonia (recurrent); Z99.81 Dependence on supplemental oxygen; Z96.641 Presence of right artificial hip joint; M79.662 Pain in left lower leg; F32.9 Major depressive disorder, single episode, unspecified; I10 Essential (primary) hypertension; M84.48XD Pathological fracture, other site, subsequent encounter for fracture with routine healing
CPT/HCPCS: 36415; 72040; 72125; 73552; 80048; 80053; 85007; 85027; 94760